=== PATIENT | female | born 1995 | race Caucasian/White ===

== ENCOUNTER 2024-01-16 21:18 | Outpatient (REF) | payer OTHER, SELFPAY ==
[2024-01-21 11:07] LABS: Age Gdln ACOG Testing Note (.); IGP, rfx Aptima HPV ASCU Note (.)
== END 2024-01-16 21:19 | disposition home or self-care (01) ==
LOC: LAB 21:18
PROVIDERS: Visit Provider Obstetrics & Gynecology
DX: Z01.419 Encounter for gynecological examination (general) (routine) without abnormal findings (principal)
CPT/HCPCS: G0145

== ENCOUNTER 2025-01-20 15:37 | Outpatient (REF) | payer OTHER, SELFPAY ==
[2025-01-27 10:08] LABS: Age Gdln ACOG Testing Note (.); IGP, rfx Aptima HPV ASCU Note (.)
== END 2025-01-20 15:38 | disposition home or self-care (01) ==
LOC: LAB 15:37
PROVIDERS: Visit Provider Obstetrics & Gynecology
DX: Z01.419 Encounter for gynecological examination (general) (routine) without abnormal findings (principal)
CPT/HCPCS: 88175

== ENCOUNTER 2025-06-03 08:14 | Outpatient (OUT) | payer OTHER, SELFPAY ==
--- OUTSIDE RECORDS SUMMARY | 2025-06-03 08:20 | XMS_ITS | Encounter Summary ---
Author Organization [facility] Address [address] [place] [address] Care Team Providers Care Etcher [employer] Name Role Phone Huy Degroot MD Primary Care Provider [phone] Encounter Details Date Type Department Care Team (Late st Contact Info) Description 04/21/2025 Abstract [facility] [address] [place], [place] [address] [id number] Juliocesar Verduzco DO [address] [place] [address] Maia [place]umbo, [place] [address] Social History Tobacco Use Types Packs/Day Years Used Date Smoking Tobacco: Never Assessed Estimated Date of Delivery Comme nts Yes 10/17/2025 Based on Ultraso und Sex and Gender Information Value Date Recorded Sex Assigned at Not on file Legal Sex Female 6:50 PM EDT Gender Identity Not on file Sexual Orientation Not on file documented as of this encounter Plan of Treatment Upcoming Encounters Date Type Department Care Team (Late st Contact Info) Description 06/03/2025 9:40 AM EDT Routine [facility] [address] Juliocesar Verduzco DO [address] [place], [place] [id number] 01/26/2026 8:30 AM EDT Office Visit [facility] [place] [address] Juliocesar Verduzco, DO [address] [facility] [place] [address] documented as of this encounter Goals Goal Patient Goal Type Associated Problems Recent Progress Patient-Stated? Author Reminders Care Plan OB Reminders No Open Scheduling, Background documented as of this encounter Visit Diagnoses Not on filedocumented in this encounter Additional Health Concerns Active Problems Noted Date Diagnosed Date OB Reminders 03/29/2025 documented as of this encounter Care Teams Etcher [employer] Relationship Specialty Start Date End Date Huy Degroot MD [address] [facility] [place] [phone] PCP - General 01/09/24 documented as of this encounter
--- OUTSIDE RECORDS SUMMARY | 2025-06-03 08:20 | XMS_ITS | Encounter Summary ---
Author Organization [facility] Address [address] [place] [address] Care Team Providers Care Auto Mechanic Supervisor Name Role Phone Huy Degroot MD Primary Care Provider [phone] Encounter Details Date Type Department Care Team (Latest Contact Info) Description 05/27/2025 Travel Social History Tobacco Use Types Packs/Day Years [...] 06/03/2025 9:40 AM EDT Routine [facility] [address] [facility] [place] [address] Juliocesar Verduzco DO [address] [place], [place] [address] 01/26/2026 8:30 AM EDT Office Visit [facility]IRGILIO BEDOYA [address] [place] [address] Juliocesar Verduzco DO [address], [facility] documented as of this encounter Goals Goal Patient Goal Type Associated Problems Recent Progress Patient-Stated? Author Reminders Care Plan OB Reminders No Open Scheduling, Background documented as of this encounter Visit Diagnoses Not on filedocumented in this encounter Additional Health Concerns Active Problems Noted Date Diagnosed Date OB Reminders 03/29/2025 documented as of this encounter Care Teams Auto Mechanic Supervisor Relationship Specialty Start Date End Date Huy Degroot MD [address] [place] [address] PCP - General 01/09/24 documented as of this encounter
--- OUTSIDE RECORDS SUMMARY | 2025-06-03 08:20 | XMS_ITS | Clinical Summary ---
Author Organization [facility] Address [address] [place] [address] Care Team Providers Care Cst Name Role Phone Huy Degroot MD Primary Care Provider [phone] Allergies No known active allergies Medications Vit-Fe Fumarate-FA ( Vitamins) 28-0.8 MG tabletIndication s:, unspecified gestational age ([facility]),Encoun ter for supervision of normal first in first trimester ([facility]) Take 1 tablet by mouth Daily 30 tablet 11 5 03/21/20 26 Active metroNIDAZOLE (Flagyl) 500 MG tabletIndication s:BV (bacterial vaginosis) Take 1 tablet (500 mg) by mouth in the morning and 1 tablet (500 mg) before bedtime. Do all this for 7 days. Do not drink alcohol while taking this medication. 14 tablet 5 05/14/20 25 Encounters Date Type Department Care Team Description 05/27/2025 Travel 05/07/2025 Telephone [facility] [place] [address] [place] [address] Gely Berumen PA 05/06/2025 8:50 AM EDT Routine [facility] [address] [place] [address] Gely Berumen PA Second trimester ([facility]); 16 weeks gestation of ([facility]); Screening, , for anatomic survey ([facility]); Vaginal discharge 05/06/2025 External Result Encounter [facility] External Department Unsolicited Gely Berumen PA 05/06/2025 Bamboo flowsheet [facility] [address] [place] [address] Gely Berumen PA 05/05/2025 Travel 04/21/2025 Abstract [facility] [address] [place] [address] Juliocesar Verduzco, 04/08/2025 11:40 AM EDT Routine [facility] [address] [place] [address] Juliocesar Verduzco, DO First trimester ([facility]); 12 weeks gestation of ([facility]) 04/08/2025 Bamboo flowsheet [facility] [address] [place] [address] Juliocesar Verduzco, DO 04/01/2025 Travel 03/28/2025 External Result Encounter [facility]OM[facility] External Department Unsolicited Juliocesar Verduzco, DO 03/28/2025 External Result Encounter [facility] External Department Unsolicited Juliocesar Verduzco, DO 03/28/2025 External Result Encounter [facility] External Department Unsolicited Juliocesar Verduzco, DO 03/28/2025 External Result Encounter [facility] External Department Unsolicited Juliocesar Verduzco, DO 03/28/2025 External Result Encounter [facility] External Department Unsolicited Juliocesar Verduzco, DO 03/28/2025 External Result Encounter [facility] External Department Unsolicited Juliocesar Verduzco, DO 03/28/2025 External Result Encounter [facility]OM[facility] External Department Unsolicited Juliocesar Verduzco, DO 03/21/2025 9:00 AM EDT Initial [facility] [place] [address] [place]: 10w0d 03/21/2025 8:30 AM EDT Ancillary Procedure [facility] [place] [phone] Missed menses; Positive urine test ([facility]) 03/16/2025 Travel from Last 3 Months Social History Tobacco Use Types Packs/Day Years Used Date Smoking Tobacco: Never Assessed Estimated Date of Delivery Comme nts Yes 10/17/2025 Based on Ultraso und Sex and Gender Information Value Date Recorded Sex Assigned at Not on file Legal Sex Female 6:50 PM EDT Gender Identity Not on file Sexual Orientation Not on file Last Filed Vital Signs Vital Sign Reading Time Taken Comments Blood Pressure 128/86 05/06/2025 8:38 AM EDT Pulse - - Temperature - - Respiratory Rate - - Oxygen Saturation - - Inhaled Oxygen Concentration - - Weight 76.7 kg (169 lb) 05/06/2025 8:38 AM EDT Height 160 cm (5' 3 ) 01/11/2023 12:00 PM EDT Body Mass Index 29.94 01/11/2023 12:00 PM EDT Plan of Treatment Upcoming Encounters Date Type Department Care Team (Late st Contact Info) Description 06/03/2025 9:40 AM EDT Routine [facility] [address] [phone] Juliocesar Verduzco DO [address] [place] [address] 01/26/2026 8:30 AM EDT Office Visit [facility] [address] [place] [phone] Juliocesar Verduzco DO [address] [place] [address] Goals Goal Patient Goal Type Associated Problems Recent Progress Patient-Stated? Author Reminders Care Plan OB Reminders No Open Scheduling, Background Procedures Procedure Name Priority Date/Time Associated Diagnosis Comments RECURRENT VAGINITIS (HTRX) Routine 05/06/2025 12:03 PM EDT POCT URINALYSIS DIPSTICK Routine 05/06/2025 8:47 AM EDT Second trimester ([facility]) POCT URINALYSIS DIPSTICK Routine 04/08/2025 12:19 PM EDT First trimester ([facility]) HEMOGLOBIN A1C WITH EAG Routine 03/28/2025 1:25 PM EDT HCV ANTIBODY CASCADE Routine 03/28/2025 1:25 PM EDT HEPATITIS B SURFACE ANTIGEN ([facility] Routine 03/28/2025 1:25 PM EDT HIV-1 AND HIV-2 ANTIBODIES Routine 03/28/2025 1:25 PM EDT RPR W/RFX TO QUANT & TP ABS ([facility]) Routine 03/28/2025 1:25 PM EDT RUBELLA AB (IGG), IMMUNE STATUS Routine 03/28/2025 1:25 PM EDT TOXICOLOGY SCREEN, URINE Routine 03/28/2025 1:25 PM EDT CBC WITH AUTO DIFFERENTIAL Routine 03/28/2025 1:25 PM EDT CULTURE, URINE, ROUTINE Routine 03/28/2025 1:25 PM EDT POCT URINALYSIS DIPSTICK Routine 03/21/2025 9:33 AM EDT Missed menses POCT , URINE Routine 03/21/2025 9:31 AM EDT Missed menses US OB TRANSVAGINAL Routine 03/21/2025 8: 44 AM EDT Missed menses Positive urine test ([facility]) from Last 3 Months Results * (ABNORMAL) RECURRENT VAGINITIS (HTRX) (05/06/2025 12:03 PM EDT) [facility] 0 19.961 - 24.689 ppm 05/07/2025 6:18 AM EDT [facility] ATOPOBIUM VAGINAE Not Detected 19.961 - 24.689 ppm 05/07/2025 6:18 AM EDT [facility] BVAB 2,3 (BACTERIAL VAGINOSIS ASSOCIATED BACTERIA 2, 3); MOBILUNCUS SPP 26.334(A) 19.961 - 24.689 ppm 05/07/2025 6:18 AM EDT [facility] BVAB 2,3 (BACTERIAL VAGINOSIS ASSOCIATED BACTERIA 2, 3); MOBILUNCUS SPP Detected(A) 19.961 - 24.689 ppm 05/07/2025 6:18 AM EDT [facility] OSMANY ALBICANS, PARAPSILOSIS, TROPICALIS 0 23.000 - 30.347 ppm 05/07/2025 6:18 AM EDT [facility] OSMANY ALBICANS, PARAPSILOSIS, TROPICALIS Not Detected 23.000 - 30.347 ppm 05/07/2025 6:18 AM EDT [facility] OSMANY GLABRATA 0 23.000 - 31.618 ppm 05/07/2025 6:18 AM EDT [facility] OSMANY GLABRATA Not Detected 23.000 - 31.618 ppm 05/07/2025 6:18 AM EDT [facility] OSMANY KRUSEI 0 23.000 - 30.873 ppm 05/07/2025 6:18 AM EDT [facility] OSMANY KRUSEI Not Detected 23.000 - 30.873 ppm 05/07/2025 6:18 AM EDT [facility] CHLAMYDIA TRACHOMATIS 0 23.000 - 31.586 ppm 05/07/2025 6:18 AM EDT [facility] CHLAMYDIA TRACHOMATIS Not Detected 23.000 - 31.586 ppm 05/07/2025 6:18 AM EDT [facility] GARDNERELLA VAGINALIS 0 19.961 - 24.689 ppm 05/07/2025 6:18 AM EDT [facility] GARDNERELLA VAGINALIS Not Detected 19.961 - 24.689 ppm 05/07/2025 6:18 AM EDT [facility] MEGASPHAERA (TYPES 1, 2) 0 19.961 - 24.689 ppm 05/07/2025 6:18 AM EDT [facility] JANUARYHAERA (TYPES 1, 2) Not Detected 19.961 - 24.689 ppm 05/07/2025 6:18 AM EDT [facility] NEISSERIA GONORRHOEAE 0 23.000 - 32.587 ppm 05/07/2025 6:18 AM EDT [facility] NEISSERIA GONORRHOEAE Not Detected 23.000 - 32.587 ppm 05/07/2025 6:18 AM EDT [facility] TRICHOMONAS VAGINALIS 0 23.000 - 31.995 ppm 05/07/2025 6:18 AM EDT [facility] TRICHOMONAS VAGINALIS Not Detected 23.000 - 31.995 ppm 05/07/2025 6:18 AM EDT [facility] MYCOPLASMA GENITALIUM 0 19.961 - 24.689 ppm 05/07/2025 6:18 AM EDT [facility] MYCOPLASMA GENITALIUM Not Detected 19.961 - 24.689 ppm 05/07/2025 6:18 AM EDT [facility] Tissue 05/06/2025 12:0 3 PM EDT 05/07/2025 1:21 AM EDT us Gely VELASCO LAB BLOOD ORDERABLES Final Resul t [facility] [address] [address] * (ABNORMAL) POCT urinalysis dipstick manually resulted (05/06/2025 8:47 AM EDT) Only the most recent of3 resultswithin the time period is included. Color, UA Yellow Clarity, UA Clear Glucose, UA Negative Negative - 2000(110) ++++ mg/dL Bilirubin, UA Negative Negative - 4(70) +++ mg/dL Ketones, UA Negative Negative - 160(16) ++++ mg/dL Spec Grav, UA 1.010 1 - 1.03 Blood, UA Negative Negative - 50 Tray/mcL pH, UA 6.0 5 - 9 Protein, UA Negative Negative - 1999(20) ++++ mg/dL Urobilinogen, UA 0.2 0.2 - 12 mg/dL Leukocytes, UA Moderate Negative - 500+++ Benigno/mcL Nitrite, UA Negative Negative - Positive Urine 05/06/2025 8:47 AM EDT Gely VELASCO POINT OF CARE TEST ENTER/EDIT OR DERABLES Final Result * HCV ANTIBODY CASCADE (03/28/2025 1:25 PM EDT) Pathologist [facility] HEPATITIS C VIRUS ANTIBODY Non Reactive Non Reactive 03/29/2025 5:07 AM EDT [facility] INTERPRETATION HEPATITIS C Comment . 03/29/2025 5:07 AM EDT [facility] Comment: Not infected with HCV unless early or acute infection is suspected (which may be delayed in an immunocompromised individual), or other evidence exists to indicate HCV infection. Performed at: - [facility] [id number] Labor Supervisor: Noe Kemp PhD, Phone: [phone] Other Topography unknown / Unknown 03/28/2025 1:25 PM EDT 03/28/2025 1:25 PM EDT Narrative [facility] - 03/29/2025 1:25 PM EDT Specimen Comment: A duplicate report has been generated due to demographic Specimen Comment: updates. Juliocesar Verduzco DO LAB BLOOD ORDERABLES Final Resul t [facility] [address] [place] [address], * RPR W/RFX TO QUANT & TP ABS ([facility]) (03/28/2025 1:25 PM EDT) RPR, RFX QUANT RPR Non Reactive Non Reactive 03/29/2025 4:07 AM [facility] RPR INTERPRETATION Comment . 03/29/2025 4:07 AM [facility] Comment: Syphilis: RPR with Reflex to RPR Titer and Treponemal Antibodies, Traditional Screening and Diagnosis Algorithm Treponemal RPR RPR, Qn Ab Final Interpretation -------- --------- Non N/A N/A No laboratory evidence Reactive of syphilis. Retest in 2-4 weeks if recent exposure us suspected. -------- --------- Reactive >/=1:1 Non Nontreponemal antibodies Reactive detected. Syphilis unlikely; biological false positive possible. Retest in 2-4 weeks if recent exposure is suspected. -------- --------- Reactive >/=1:1 Reactive Treponemal and nontreponemal antibodies detected. Consistent with past or current (potential early) syphilis. Performed at: - [facility], [place], [place] [id number] Labor Supervisor: Noe Kemp PhD, Phone: [phone] Other Topography unknown / Unknown 03/28/2025 1:25 PM EDT 03/28/2025 1:25 PM EDT us Juliocesar Verduzco DO LAB BLOOD ORDERABLES Final Resul t [place] [address] [address] [place] [phone], * HEPATITIS B SURFACE ANTIGEN ([facility]) (03/28/2025 1:25 PM EDT) [facility] HBSAG SCREEN Negative Negative 03/29/2025 5:07 AM EDT [facility] Comment: Performed at: - [facility] [id number] Labor Supervisor: Noe Kemp PhD, Phone: [phone] Other Topography unknown / Unknown 03/28/2025 1:25 PM EDT 03/28/2025 1:25 PM EDT Juliocesar Luba DO LAB BLOOD ORDERABLES Final Resul t Performing Organization Address [facility] Co de Phone Number [address] [place] [phone], * Hemoglobin a1c with eag (03/28/2025 1:25 PM EDT) [facility] HEMOGLOBIN A1C 5.0 4.3 - 5.6 % 03/29/2025 9:43 AM EDT [facility] Comment: Increased risk for diabetes: 5.7 - 6.4 diabetes: >6.4 glycemic control for adults with diabetes: <7.0 ESTIMATED AVERAGE GLUCOSE 97 mg/dL 03/29/2025 9:43 AM EDT [facility] Blood (Blood) 03/28/2025 1:2 5 PM EDT 03/28/2025 1:25 PM EDT Juliocesar Luba DO LAB BLOOD ORDERABLES Final Resul t Performing Organization Address [facility] Co de Phone Number [address] [place] [phone], [place] [phone] * CBC auto differential (03/28/2025 1:25 PM EDT) [facility] WBC 7.8 3.8 - 11.6 [CFU]/mL 03/28/2025 2:05 PM EDT [facility] UNCORRECTED WHITE BLOOD COUNT 7.8 3.8 - 11.6 10*3/uL 03/28/2025 2:05 PM EDT [facility] RBC 4.35 3.60 - 5.00 10*6/uL 03/28/2025 2:05 PM EDT [facility] HEMOGLOBIN 13.9 11.8 - 15.4 g/dL 03/28/2025 2:05 PM EDT [facility] HEMATOCRIT 40.2 34.0 - 46.4 % 03/28/2025 2:05 PM EDT [facility] MCV 92.5 80 - 100 fL 03/28/2025 2:05 PM EDT [facility] MCH 31.9 24.7 - 34.3 pg 03/28/2025 2:05 PM EDT [facility] MCHC 34.5 32.0 - 35.0 g/dL 03/28/2025 2:05 PM EDT [facility] RED CELL DISTRIBUTION WIDTH, RDW 12.7 11.9 - 15.3 % 03/28/2025 2:05 PM EDT [facility] PLATELET COUNT 296 150 - 450 10*3/uL 03/28/2025 2:05 PM EDT [facility] MEAN PLATELET VOLUME, MPV 8.4 6.3 - 10.7 fL 03/28/2025 2:05 PM EDT [facility] NEUTROPHILS, % 66.6 . % 03/28/2025 2:05 PM EDT [facility] LYMPHOCYTES, % 24.3 . % 03/28/2025 2:05 PM EDT [facility] MONOCYTE/MACROPHA GE, % 7.0 . % 03/28/2025 2:05 PM EDT [facility] EOSINOPHILS, % 1.6 . % 03/28/2025 2:05 PM EDT [facility] BASOPHILS, % 0.5 . % 03/28/2025 2:05 PM EDT [facility] NRBC 0.1 0 - 0.5 /100{WBC} 03/28/2025 2:05 PM EDT [facility] NEUTROPHILS 5.2 1.8 - 7.7 10*3/uL 03/28/2025 2:05 PM EDT [facility] LYMPHOCYTES 1.9 1.00 - 4.8 10*3/uL 03/28/2025 2:05 PM EDT [facility] MONOCYTES 0.5 0.0 - 0.8 10*3/uL 03/28/2025 2:05 PM EDT [facility] EOSINOPHILS 0.1 0.0 - 0.45 10*3/uL 03/28/2025 2:05 PM EDT [facility] BASOPHILS 0.0 0.0 - 0.2 10*3/uL 03/28/2025 2:05 PM EDT [facility] Blood (Blood) 03/28/2025 1:2 5 PM EDT 03/28/2025 1:25 PM EDT Juliocesar Verduzco DO LAB BLOOD ORDERABLES Final Resul t Performing Organization Address City/State/[facility] Co de Phone Number [facility] [address] [place] [address], [facility] [address] [place] [address] * Toxicology screen, urine (03/28/2025 1:25 PM EDT) AMPHETAMINE SCREEN,URINE Negative Negative 03/28/2025 2:50 PM EDT [facility] BARBITURATE SCREEN,URINE Negative Negative 03/28/2025 2:50 PM EDT [facility] BENZODIAZEPINES SCREEN,URINE Negative Negative 03/28[facility]2025 [facility] COCA[facility],URINE Negative Negative 03/28/2025 2:50 PM EDT [facility] OPIATE SCREEN,URINE Negative Negative 03/28 2:50 PM EDT [facility] PHENCYCLIDINE SCREEN,URINE Negative Negative 03/28/2025 2:50 PM EDT [facility] CANNABINOID SCREEN,URINE Negative Negative 03/28/2025 2:50 PM EDT [facility] Comment: These are unconfirmed results and should not be used for legal purposes. Drug Cut-Off Concentration: AMPH 1000 ng/mL CHARLES 200 ng/mL KAROLYN 200 ng/mL COCM 300 ng/mL OP 300 ng/mL PCP 25 ng/mL THC 20 ng/mL Other 03/28/2025 1:25 PM EDT 03/28/2025 1:25 PM EDT [facility] Luba DO LAB URINE ORDERABLES Final Resul t Performing Organization Address [facility] Co de Phone Number [place] [phone], [place] [phone] * Rubella antibody, IgG (03/28/2025 1:25 PM EDT) RUBELLA IGG ANTIBODY 1.42 Immune >0.99 03/29/2025 3:36 AM EDT [facility] Comment: Non-immune <0.90 Equivocal 0.90 - 0.99 Immune >0.99 Performed at: [facility] [id number] Labor Supervisor: Noe Kemp PhD, Phone: [phone] Other Topography unknown / Unknown 03/28/2025 1:25 PM EDT 03/28/2025 1:25 PM EDT [facility] LAB BLOOD ORDERABLES Final Resul t Performing Organization Address [facility] [place] [address], * HIV-1 and HIV-2 antibodies (03/28/2025 1:25 PM EDT) HIV SCREEN 4TH GENERATION Non Reactive Non Reactive 03/29/2025 5:07 AM EDT [facility] Comment: HIV-1/HIV-2 antibodies and HIV-1 p24 antigen were NOT detected. There is no laboratory evidence of HIV infection. HIV Negative Performed at: [facility] [id number] Labor Supervisor: Noe Kemp PhD, Phone: [phone] Other Topography unknown / Unknown 03/28/2025 1:25 PM EDT 03/28/2025 1:25 PM EDT us Juliocesar Luba DO LAB BLOOD ORDERABLES Final Resul t Performing Organization Address City/[facility]/ZIP Co de Phone Number [facility] [address] [place] [address], * Urine culture (03/28/2025 1:25 PM EDT) Pathologist [facility] NOTE <9,000 colonies/ml mixed bacterial skin contaminants 2 Days 03/30/2025 10:08 AM EDT [facility] Urine Urine specimen obtained by clean catch procedure / Unknown 03/28/2025 1:25 PM EDT 03/28/2025 1:25 PM EDT Comment:Clean-Voided Midstre am us Juliocesar Luba DO LAB MICROBIOLOGY - GENERAL ORDER RAFA Final Result Performing Organization Address [facility] Co de Phone Number [facility] [address] [place] [address], [facility] [address] [place] [address] * (ABNORMAL) POCT , urine manually resulted (03/21/2025 9:31 AM EDT) [facility] Preg Test, Ur Positive Negative Urine 03/21/2025 9:31 AM EDT us Juliocesar Luba DO POINT OF CARE TEST ENTER/EDIT OR DERABLES Final Result * US OB transvaginal (03/21/2025 8:44 AM EDT) Anatomical Region Laterality Modality Body Ultrasound 03/22/2025 8:42 AM EDT Narrative 03/22/2025 8:42 AM EDT EXAM: US OB TRANSVAGINAL HISTORY: Dating. COMPARISON: None available. TECHNIQUE: Two-dimensional transvaginal grayscale ultrasound imaging of the pelvis was performed. Color Doppler evaluation of the ovaries was also performed. FINDINGS: The uterus demonstrates a normal homogeneous echotexture. The cervix measures 4.1 cm in length and the cervical os is closed. The right ovary measures 2.7 x 1.5 x 2.5 cm and demonstrates a normal echotexture. There is normal color Doppler flow. There is a presumed corpus luteal cyst. The left ovary is not visualized. No fluid is present within the cul-de-sac. There is a single, live intrauterine gestation identified with a heart rate of 169 beats per minute and a crown-rump length measurement of 3.1 cm, correlating to a gestational age of 10 weeks 0 days (+/- 6 days). There is no subchorionic hemorrhage visualized. A yolk sac is visualized. IMPRESSION: 1. Single, live intrauterine gestation 9 weeks, 1 days by LMP. Today's ultrasound measurements correlate with a gestational age of 10 weeks 0 days (+/- 6 days). AMIRA by today's ultrasound is 10/17/2025. 2. Normal color Doppler evaluation of the right ovary, the left ovary was not visualized. Interpreted by: Electronically signed by ALEXY SINGH II, MD, PHD at 22-Mar-2025 08:40:55 AM [facility] Procedure Note Alexy Singh MD - 03/22/2025 EXAM: US OB TRANSVAGINAL HISTORY: Dating. COMPARISON: None available. TECHNIQUE: Two-dimensional transvaginal grayscale ultrasound imaging ofthe pelvis was performed. Color Doppler evaluation of the ovaries was alsoperformed. FINDINGS: The uterus demonstrates a normal homogeneous echotexture. The cervixmeasures 4.1 cm in length and the cervical os is closed. The right ovary measures 2.7 x 1.5 x 2.5 cm and demonstrates a normalechotexture. There is normal color Doppler flow. There is a presumedcorpus luteal cyst. The left ovary is not visualized. No fluid is present within the cul-de-sac. There is a single, live intrauterine gestation identified with a fetalheart rate of 169 beats per minute and a crown-rump length measurement of3.1 cm, correlating to a gestational age of 10 weeks 0 days (+/- 6 days).There is no subchorionic hemorrhage visualized. A yolk sac isvisualized. IMPRESSION: 1. Single, live intrauterine gestation 9 weeks, 1 days by LMP. Today'sultrasound measurements correlate with a gestational age of 10 weeks 0days (+/- 6 days). AMIRA by today's ultrasound is 10/17/2025. 2. Normal color Doppler evaluation of the right ovary, the left ovary wasnot visualized. Interpreted by: Electronically signed by ALEXY SINGH II, MD, PHD 08:40:55 AM [facility] us Juliocesar Verduzco DO IMG OB US PROCEDURES Final Resul t from Last 3 Months Additional Health Concerns Active Problems Noted Date Diagnosed Date OB Reminders 03/29/2025 Insurance [employer] Care Teams Cst Relationship Specialty Start Date End Date Huy Degroot MD [address] [facility] [place] [phone] PCP - General 01/09/24
--- OUTSIDE RECORDS SUMMARY | 2025-06-03 08:20 | XMS_ITS | Encounter Summary ---
Author Organization [facility] Address [address] [place] [address] Care Team Providers Care Exchange Underwriting Consultant Name Role Phone Huy Degroot MD Primary Care Provider [phone] Encounter Details Date Type Department Care Team (Late st Contact Info) Description 01/30/2025 Orders Only [facility] [address] [place] [address] [place] [address] [place] [address] Social History Tobacco Use Types Packs/Day Years Used Date Smoking Tobacco: Never Assessed Comments No Sex and Gender Information Value Date Recorded Sex Assigned at Not on file Legal Sex Female 6:50 PM EDT Gender Identity Not on file Sexual Orientation Not on file documented as of this encounter Plan of Treatment Upcoming Encounters Date Type Department Care Team (Late st Contact Info) Description 06/03/2025 9:40 AM EDT Routine [facility] [address] [place], [place] [address] [phone] Juliocesar Verduzco, DO [address] [place], [place] [phone] 01/26/2026 8:30 AM EDT Office Visit [facility] [place] [address] [place] [phone] Juliocesar Verduzco, DO [address] [place], [place] [phone] documented as of this encounter Procedures Procedure Name Priority Date/Time Associated Diagnosis Comments PAP SMEAR Routine 01/20/2025 12:00 AM EDT documented in this encounter Results * Pap Smear (01/20/2025 12:00 AM EDT) Swab Cervical swab / Unknown us Juliocesar Luba DO LAB CYTOLOGY ORDERABLES Final Re sult EXTERNAL LAB documented in this encounter Visit Diagnoses Not on filedocumented in this encounter Care Teams Exchange Underwriting Consultant Relationship Specialty Start Date End Date Huy Degroot MD [address] [facility] [place] [address] PCP - General 01/09/24 documented as of this encounter
--- OUTSIDE RECORDS SUMMARY | 2025-06-03 08:20 | XMS_ITS | Clinical Summary ---
Author Organization [facility] Address [address] [place] [id number] Care Team Providers Care Baby Formula Mixer Name Role Phone AlishaEvangelist garcia Primary Care Provider [phone] Medications ciprofloxacin HCl (CIPRO ORAL) Take by mouth. Active Social History Tobacco Use Types Packs/Day Years Used Date Smoking Tobacco: Never Assessed Area Deprivation Index Answer Date Rodrigo rded National Score (1-100), lower number is lower ri sk Not on file 02/24/2021 State Score (1-10), lower number is lower risk N ot on file 02/24/2021 Data from: https://www.neighborhoodatlas.[facility].edu/. Last address used for calculation Not on file 02/24/2021 Comments No Sex and Gender Information Value Date Recorded Sex Assigned at Not on file Legal Sex Female 12:53 PM EST Gender Identity Not on file Sexual Orientation Not on file Last Filed Vital Signs Vital Sign Reading Time Taken Comments Blood Pressure 122/80 02/24/2021 10:37 AM EDT Pulse - - Temperature - - Respiratory Rate - - Oxygen Saturation - - Inhaled Oxygen Concentration - - Weight 68.9 kg (152 lb) 02/24/2021 10:37 AM EDT Height 162.6 cm (5' 4 ) 02/24/2021 10:37 AM EDT Body Mass Index 26.09 02/24/2021 10:37 AM EDT Plan of Treatment Health Maintenance Due Date Last Done Comments Anxiety Screening 2013 Depression Screening 2013 HIV Screening 2013 Hepatitis C Screening 2013 DTaP,Tdap,Td Vaccine (1 - Tdap) 2014 Hepatitis B Vaccine (1 of 3 - 19+ 3-dose series) 11/23 Cervical Cancer Screening 2016 HPV Vaccine (1 - 3-dose SCDM series) 2022 Influenza Vaccine (#1) 2025 Insurance [employer] Care Teams Baby Formula Mixer Relationship Specialty Start Date End Date Evangelist Brito [id number] [place] [id number] PCP - General Internal Medicine 10/20/20
--- NOTE | 2025-06-03 08:21 | US_ITS ---
The [address] [address] Patient Name: YENY DOYLE MRN: [id number] date: 1995 Sex: F Assigned Patient Location: Current Patient Location: Accession/Order Number: [id number] Exam Date: 06/03/2025 08:28 Report Date: 06/03/2025 09:49 At the request of: GISSEL MANJARREZ Procedure: US OB cervical length CLINICAL DATA: Screening of OB anatomy. ULTRASOUND OB ANATOMY COMPARISON: None There is a single live intrauterine gestation in transverse presentation, head to the maternal left. The amniotic fluid volume is subjectively normal. The placenta is anterior and fundal. There is cardiac and somatic activity with heart rate of 134 beats per minutes. The neural axis and all 4 extremities were surveyed by the sewing machine operator zipper and no abnormalities were detected. The stomach, bladder, kidneys, three-vessel cord with insertion, four-chamber heart with right and left outflow tracts, diaphragm, facial features and female genitalia are seen. The following measurements were obtained: Biparietal diameter 4.8 cm 20 weeks 4 days 52% Head circumference 17.7 cm 20 weeks 1 day 24% Abdominal circumference 16.4 cm 21 weeks 3 days 71% Femur length 3.4 cm 20 weeks 3 days 39% The composite ultrasound age based on these measurements is 20 weeks 5 days +/- 1 week 3 days. The estimated date of delivery is October 16, 2025. US/US OB cervical length IMPRESSION: SINGLE LIVE INTRAUTERINE GESTATION WITH ULTRASOUND AGE OF 20 WEEKS 5 DAYS. UNREMARKABLE ANATOMY SURVEY. ULTRASOUND OB CERVICAL LENGTH COMPARISON: None The cervix was evaluated with the transvaginal probe. There is no evidence of previa. The placenta is almost 7 cm from the internal cervical os. The cervix is closed. The estimated length is 4.5 cm. IMPRESSION: UNREMARKABLE, CLOSED CERVIX. Impression dictated by: Annia Putnam M.D. 06/03/2025 9:49 AM Dictation Location: [employer] Electronically authenticated by: [id number] Y Date: 06/03/2025 09:49
--- NOTE | 2025-06-03 08:21 | US_ITS ---
The [address] [address] Patient Name: YENY DOYLE MRN: [id number] date: 1995 Sex: F Assigned Patient Location: Current Patient Location: Accession/Order Number: [id number] Exam Date: 06/03/2025 08:28 Report Date: 06/03/2025 09:49 At the request of: GISSEL MANJARREZ Procedure: US OB cervical length CLINICAL DATA: Screening of OB anatomy. ULTRASOUND OB ANATOMY COMPARISON: None There is a single live intrauterine gestation in transverse presentation, head to the maternal left. The amniotic fluid volume is subjectively normal. The placenta is anterior and fundal. There is cardiac and somatic activity with heart rate of 134 beats per minutes. The neural axis and all 4 extremities were surveyed by the farm machine tender and no abnormalities were detected. The stomach, bladder, kidneys, three-vessel cord with insertion, four-chamber heart with right and left outflow tracts, diaphragm, facial features and female genitalia are seen. The following measurements were obtained: Biparietal diameter 4.8 cm 20 weeks 4 days 52% Head circumference 17.7 cm 20 weeks 1 day 24% Abdominal circumference 16.4 cm 21 weeks 3 days 71% Femur length 3.4 cm 20 weeks 3 days 39% The composite ultrasound age based on these measurements is 20 weeks 5 days +/- 1 week 3 days. The estimated date of delivery is October 16, 2025. US/US OB anatomy IMPRESSION: SINGLE LIVE INTRAUTERINE GESTATION WITH ULTRASOUND AGE OF 20 WEEKS 5 DAYS. UNREMARKABLE ANATOMY SURVEY. ULTRASOUND OB CERVICAL LENGTH COMPARISON: None The cervix was evaluated with the transvaginal probe. There is no evidence of previa. The placenta is almost 7 cm from the internal cervical os. The cervix is closed. The estimated length is 4.5 cm. IMPRESSION: UNREMARKABLE, CLOSED CERVIX. Impression dictated by: Annia Putnam M.D. 06/03/2025 9:49 AM Dictation Location[facility] Electronically authenticated by: [id number] Y Date: 06/03/2025 09:49
--- OUTSIDE RECORDS SUMMARY | 2025-06-03 08:27 | XMS_ITS | CCD ---
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 Name Role Phone LUBA ., DR WHEAT Attending Unavailable LUBA ., DR WHEAT Consulting Unavailable LUBA ., DR WHEAT Admitting Unavailable Huy Degroot MD Primary Care Provider Huy Degroot MD Primary Care Provider Huy Degroot Primary Care Unavailable Jarret Verduzco Attending Jarret Rocha Admitting Unavailable JARRET VERDUZCO Attending Unavailable JARRET VERDUZCO Attending Unavailable GELY MANJARREZ Attending Unavailable Medications Current Medications Medication Drug Class(es) Dates Sig (Normalized) Sig (Original) Ethinyl Estradiol / norgestimate (3 sources) Progestin, Estrogen Start: 02-29-2024 End: 01-20-2025 take 1 tablet by mouth once daily norgestimate-ethiny l estradiol (Ortho Tri-Cyclen,Trinessa ) 0.18/0.215/0.25 MG-35 MCG tablet Indications: Personal history of other diseases of the female genital tract TAKE 1 TABLET BY MOUTH EVERY DAY FOR 90 DAYS 84 tablet 3 02/29/2024 01/20/2025 Discontinued Start: 02-29-2024 take 1 tablet by jodee th once daily norgestimate-ethinyl estradiol (Ortho Tri-Cyclen,Trinessa) 0.18/0.215/0.25 MG-35 MCG tablet Indications: Personal history of other diseases of the female genital tract TAKE 1 TABLET BY MOUTH EVERY DAY FOR 90 DAYS 84 tablet 3 02/29/2024 Active Vit-Fe Fumarate-FA ( Vitamins) 28-0.8 MG tablet (14 sources) Start: 03-21-2025 End: 03-21-2026 take 1 tablet by mouth once daily Vit-Fe Fumarate-FA ( Vitamins) 28-0.8 MG tablet Indications: , unspecified gestational age ([facility]) , Encounter for supervision of normal first in first trimester ([facility]) Take 1 tablet by mouth Daily 30 tablet 11 03/21/2025 03/21/2026 Active Problems Problem Classification Problem Date Documented Date Episodic/Chronic Immunizations and screening for infectious disease (1 source) Encounter for screening for human papillomavirus (HPV); Translations: [ENC SCREENING HUMAN PAPILLOMAVIRUS] Onset: 01-16-2023 Episodic Menstrual disorders (1 source) Missed period; Translations: [Irregular menstruation, unspecified] 03-21-2025 Chronic Other female genital disorders (2 sources) Vaginal discharge; Translations: [Other specified noninflammatory disorders of vagina] 05-06-2025 Episodic Other and delivery including normal (7 sources) ; Translations: [Encounter for supervision of normal , unspecified, unspecified trimester] Onset: 03-28-2025 03-21-2025 Episodic Other screening for suspected conditions (not mental disorders or infectious disease) (6 sources) Encounter for screening for malignant neoplasm of cervix; Translations: [Patient encounter status] Onset: 01-11-2023 Episodic Residual codes; unclassified (2 sources) Gestation period, 12 weeks; Translations: [12 weeks gestation of ] 04-08-2025 Episodic Residual codes; unclassified (2 sources) Gestation period, 16 weeks; Translations: [16 weeks gestation of ] 05-06-2025 Episodic Unclassified (7 sources) OB Reminders Onset: 03-29-2025 03-29-2025 Results Test Name Value Interpretation Reference Range Facility RECURRENT VAGINITIS (HTRX)on 05-07-2025 ATOPOBIUM VAGINAE 0 [facility] ATOPOBIUM VAGINAE Not detected [facility] BVAB 2,3 (BACTERIAL VAGINOSIS ASSOCIATED BACTERIA 2, 3); MOBILUNCUS SPP 26.334 Abnormal [facility] BVAB 2,3 (BACTERIAL VAGINOSIS ASSOCIATED BACTERIA 2, 3); MOBILUNCUS SPP Detected Abnormal [facility] OSMANY ALBICANS, PARAPSILOSIS, TROPICALIS 0 [facility] OSMANY ALBICANS, PARAPSILOSIS, TROPICALIS Not detected [facility] OSMANY GLABRATA 0 [facility] OSMANY GLABRATA Not detected [facility] OSMANY KRUSEI 0 [facility] OSMANY KRUSEI Not detected [facility] CHLAMYDIA TRACHOMATIS 0 [facility] CHLAMYDIA TRACHOMATIS Not detected [facility] GARDNERELLA VAGINALIS 0 [facility] GARDNERELLA VAGINALIS Not detected [facility] Interpretation and review of laboratory results Abnormal [facility] MEGASPHAERA (TYPES 1, 2) 0 [facility] MEGASPHAERA (TYPES 1, 2) Not detected [facility] MYCOPLASMA GENITALIUM 0 [facility] MYCOPLASMA GENITALIUM Not detected [facility] NEISSERIA GONORRHOEAE 0 [facility] NEISSERIA GONORRHOEAE Not detected [facility] TRICHOMONAS VAGINALIS 0 [facility] TRICHOMONAS VAGINALIS Not detected [facility] Urinalysis macro (dipstick) panel (U)on 05-06-2025 Bilirubin, UA Negative Negative - 4(70) +++ mg/dL [facility] Blood, UA Negative Negative - 50 Tray/mcL [facility] Clarity, UA Clear [facility] Color, UA Yellow [facility] Glucose, UA Negative Negative - 1999(110) ++++ mg/dL [facility] Interpretation and review of laboratory results Abnormal [facility] Ketones, UA Negative Negative - 160(16) ++++ mg/dL [facility] Leukocytes, UA Moderate Negative - 500+++ Benigno/mcL [facility] Nitrite, UA Negative Negative - Positive [facility] pH, UA 6 5 - 9 [facility] Protein, UA Negative Negative - 1999(20) ++++ mg/dL [facility] Spec Grav, UA 1.01 1 - 1.03 [facility] Urobilinogen, UA 0.2 0.2 - 12 mg/dL [facility] Urinalysis macro (dipstick) panel (U)on 04-08-2025 Bilirubin, UA Negative Negative - 4(70) +++ mg/dL [facility] Blood, UA Negative Negative - 50 Tray/mcL [facility] Clarity, UA Clear [facility] Color, UA Yellow [facility] Glucose, UA Negative Negative - 1999(110) ++++ mg/dL [facility] Interpretation and review of laboratory results Abnormal [facility] Ketones, UA Negative Negative - 160(16) ++++ mg/dL [facility] Leukocytes, UA Positive Negative - 500+++ Benigno/mcL [facility] Comment on above: small Nitrite, UA Negative Negative - Positive [facility] pH, UA 7 5 - 9 [facility] Protein, UA Negative Negative - 1999(20) ++++ mg/dL [facility] Spec Grav, UA 1.015 1 - 1.03 [facility] Urobilinogen, UA 0.2 0.2 - 12 mg/dL [facility] HEPATITIS B SURFACE ANTIGEN ([facility])on 03-29-2025 HBSAG SCREEN Negative Negative [facility] Comment on above: Performed at: [address] [id number] Behavioral Psychologist: Noe Kemp PhD, Phone: [phone] [facility] Hemoglobin a1c with eagon Glucose [Mass/Vol] 97 mg/dL [facility] HbA1c (Bld) [Mass fraction] 5 % 4.3 - 5.6 % [facility] Comment on above: Increased risk for d iabetes: 5.7 - 6.4 diabetes: >6.4 glycemic control for adults with diabetes: <7.0 [facility] A1C with Estimated Average G luon 03-28-2025 Glucose [Mass/Vol] 97 mg/dL Normal [facility] Comment on above: Result Comment: PERF ORMED BY: [place] [address] PATHOLOGIST EXECUTIVE ADVISOR ARNALDO RENO M.D. Performed By: #### C BC, CUU, URDS, A1C WTH eA #### [address] #### RUBELLA IGG, HIV SCREEN, HBSAG, RPR W RFX, HCVCASCADE #### [facility] , HbA1c (Bld) [Mass fraction] 5.0 % Normal 4.3-5.6 [facility] Comment on above: Result Comment: Incr eased risk for diabetes: 5.7 - 6.4 diabetes: >6.4 glycemic control for adults with diabetes: <7.0 Performed By: #### C BC, CUU, URDS, A1C WTH eA #### [place] [address] [place] #### RUBELLA IGG, HIV SCREEN, HBSAG, RPR W RFX, HCVCASCADE #### [facility] , CBC W Auto Differential pane l (Bld)on 03-28-2025 Basophils (Bld) [#/Vol] 0 10*3/uL 0.0 - 0.2 10*3/uL [facility] Basophils/100 WBC Manual cnt (Syn fld) 0.5 % . [facility] Eosinophils (Bld) [#/Vol] 0.1 10*3/uL 0.0 - 0.45 10*3/uL [facility] Eosinophils/100 WBC Manual cnt (Syn fld) 1.6 % . [facility] Erythrocyte distribution width (RBC) [Ratio] 12.7 % 11.9 - 15.3 % [facility] Hematocrit (Bld) [Volume fraction] 40.2 % 34.0 - 46.4 % [facility] Hemoglobin (Bld) [Mass/Vol] 13.9 g/dL 11.8 - 15.4 g/dL [facility] Lymphocytes (Bld) [#/Vol] 1.9 10*3/uL 1.00 - 4.8 10*3/uL [facility] Lymphocytes/100 WBC Manual cnt (Syn fld) 24.3 % . [facility] MCH (RBC) [Entitic mass] 31.9 pg 24.7 - 34.3 pg [facility] MCHC (RBC) [Mass/Vol] 34.5 g/dL 32.0 - 35.0 g/dL [facility] MCV (RBC) [Entitic vol] 92.5 fL 80 - 100 fL [facility] Monocytes (Bld) [#/Vol] 0.5 10*3/uL 0.0 - 0.8 10*3/uL [facility] Monocytes+Macrophage s/100 WBC Manual cnt (Syn fld) 7 % . [facility] Neutrophils (Bld) [#/Vol] 5.2 10*3/uL 1.8 - 7.7 10*3/uL [facility] Neutrophils/100 WBC Manual cnt (Syn fld) 66.6 % . [facility] NRBC 0.1 /100{WBC} 0 - 0.5 /100{WBC} [facility] Platelet mean volume (Bld) [Entitic vol] 8.4 fL 6.3 - 10.7 fL [facility] Platelets (Bld) [#/Vol] 296 10*3/uL 150 - 450 10*3/uL [facility] RBC LM.HPF (Urine sed) [#/Area] 4.35 10*6/uL 3.60 - 5.00 10*6/uL [facility] WBC (Bld) [#/Vol] 7.8 10*3/uL 3.8 - 11.6 10*3/uL [facility] WBC LM.HPF (Urine sed) [#/Area] 7.8 [CFU]/mL 3.8 - 11.6 [CFU]/mL [facility] Complete Blood Count Auto Di ffon 03-28-2025 Basophils (Bld) [#/Vol] 0.0 10*3/uL Normal 0.0-0.2 [facility] Comment on above: Result Comment: PERF ORMED BY: [place] [address] PATHOLOGIST EXECUTIVE ADVISOR ARNALDO RENO M.D. Performed By: #### C BC, CUU, URDS, A1C [facility] eA #### [address] #### RUBELLA IGG, HIV SCREEN, HBSAG, RPR W RFX, HCVCASCADE #### [facility] , Basophils/100 WBC (Bld) 0.5 % Normal . [facility] Comment on above: Performed By: #### C BC, CUU, URDS, A1C [facility] eA #### [place] [address] [place] #### RUBELLA IGG, HIV SCREEN, HBSAG, RPR W RFX, HCVCASCADE #### [facility] , Eosinophils (Bld) [#/Vol] 0.1 10*3/uL Normal 0.0-0.45 [facility] Comment on above: Performed By: #### C BC, CUU, URDS, A1C WT eA #### [place] [address] [place] #### RUBELLA IGG, HIV SCREEN, HBSAG, RPR W RFX, HCVCASCADE #### [facility] , Eosinophils/100 WBC (Bld) 1.6 % Normal . [facility] Comment on above: Performed By: #### C BC, CUU, URDS, A1C WTH eA #### [address] #### RUBELLA IGG, HIV SCREEN, HBSAG, RPR W RFX, HCVCASCADE #### [facility] , Erythrocyte distribution width (RBC) [Ratio] 12.7 % Normal 11.9-15.3 [facility] Comment on above: Performed By: #### C BC, CUU, URDS, A1C WTH eA #### [address] #### RUBELLA IGG, HIV SCREEN, HBSAG, RPR W RFX, HCVCASCADE #### [facility] , Hematocrit (Bld) [Volume fraction] 40.2 % Normal 34.0-46.4 [facility] Comment on above: Performed By: #### C BC, CUU, URDS, A1C WTH eA #### [address] #### RUBELLA IGG, HIV SCREEN, HBSAG, RPR W RFX, HCVCASCADE #### [facility] , Hemoglobin (Bld) [Mass/Vol] 13.9 g/dL Normal 11.8-15.4 [facility] Comment on above: Performed By: #### C BC, CUU, URDS, A1C WTH eA #### [place] [address] [place] #### RUBELLA IGG, HIV SCREEN, HBSAG, RPR W RFX, HCVCASCADE #### [facility] , Lymphocytes (Bld) [#/Vol] 1.9 10*3/uL Normal 1.00-4.8 [facility] Comment on above: Performed By: #### C BC, CUU, URDS, A1C WTH eA #### [facility] [address] [place] [address] [place] #### RUBELLA IGG, HIV SCREEN, HBSAG, RPR W RFX, HCVCASCADE #### [facility] , Lymphocytes/100 WBC (Bld) 24.3 % Normal . [facility] Comment on above: Performed By: #### C BC, CUU, URDS, A1C WTH eA #### [address] #### RUBELLA IGG, HIV SCREEN, HBSAG, RPR W RFX, HCVCASCADE #### [facility] , MCH (RBC) [Entitic mass] 31.9 pg Normal 24.7-34.3 [facility] Comment on above: Performed By: #### C BC, CUU, URDS, A1C WTH eA #### [address] #### RUBELLA IGG, HIV SCREEN, HBSAG, RPR W RFX, HCVCASCADE #### [facility] , MCV (RBC) [Entitic vol] 92.5 fL Normal 80-100 [facility] Comment on above: Performed By: #### C BC, CUU, URDS, A1C WTH eA #### [address] #### RUBELLA IGG, HIV SCREEN, HBSAG, RPR W RFX, HCVCASCADE #### [facility] , Mean Corpuscular HGB Conc 34.5 g/dL Normal 32.0-35.0 [facility] Comment on above: Performed By: #### C BC, CUU, URDS, A1C WTH eA #### [address] #### RUBELLA IGG, HIV SCREEN, HBSAG, RPR W RFX, HCVCASCADE #### [facility] , Monocytes (Bld) [#/Vol] 0.5 10*3/uL Normal 0.0-0.8 [facility] Comment on above: Performed By: #### C BC, CUU, URDS, A1C WTH eA #### [address] #### RUBELLA IGG, HIV SCREEN, HBSAG, RPR W RFX, HCVCASCADE #### [facility] , Monocytes/100 WBC (Bld) 7.0 % Normal . [facility] Comment on above: Performed By: #### C BC, CUU, URDS, A1C WTH eA #### [address] #### RUBELLA IGG, HIV SCREEN, HBSAG, RPR W RFX, HCVCASCADE #### [facility] , Neutrophils (Bld) [#/Vol] 5.2 10*3/uL Normal 1.8-7.7 [facility] Comment on above: Performed By: #### C BC, CUU, URDS, A1C [facility] eA #### [address] #### RUBELLA IGG, HIV SCREEN, HBSAG, RPR W RFX, HCVCASCADE #### [facility] , Neutrophils/100 WBC (Bld) 66.6 % Normal . [facility] Comment on above: Performed By: #### C BC, CUU, URDS, A1C WT eA #### [place] [address] [place] #### RUBELLA IGG, HIV SCREEN, HBSAG, RPR W RFX, HCVCASCADE #### [facility] , NRBC% 0.1 /100{WBC} Normal 0-0.5 [facility] Comment on above: Performed By: #### C BC, CUU, URDS, A1C WTH eA #### [address] #### RUBELLA IGG, HIV SCREEN, HBSAG, RPR W RFX, HCVCASCADE #### [facility] , Platelet mean volume (Bld) [Entitic vol] 8.4 fL Normal 6.3-10.7 [facility] Comment on above: Performed By: #### C BC, CUU, URDS, A1C WTH eA #### [address] #### RUBELLA IGG, HIV SCREEN, HBSAG, RPR W RFX, HCVCASCADE #### [facility] , Platelets (Bld) [#/Vol] 296 10*3/uL Normal 150-450 [facility] Comment on above: Performed By: #### C BC, CUU, URDS, A1C WTH eA #### [address] #### RUBELLA IGG, HIV SCREEN, HBSAG, RPR W RFX, HCVCASCADE #### [facility] , RBC (Bld) [#/Vol] 4.35 10*6/uL Normal 3.60-5.00 [facility] Comment on above: Performed By: #### C BC, CUU, URDS, A1C WT eA #### [address] #### RUBELLA IGG, HIV SCREEN, HBSAG, RPR W RFX, HCVCASCADE #### [facility] , WBC (Bld) [#/Vol] 7.8 10*3/uL Normal 3.8-11.6 [facility] Comment on above: Performed By: #### C BC, CUU, URDS, A1C WTH eA #### [place] [address] [place] #### RUBELLA IGG, HIV SCREEN, HBSAG, RPR W RFX, HCVCASCADE #### [facility] , White Blood Count 7.8 [CFU]/mL Normal 3.8-11.6 [facility] Comment on above: Performed By: #### C BC, CUU, URDS, A1C WTH eA #### [address] #### RUBELLA IGG, HIV SCREEN, HBSAG, RPR W RFX, HCVCASCADE #### [facility] , Drug Screen,Urineon 03-28-20 25 Amphetamine Screen,Urine Negative Normal Negative [facility] Comment on above: Performed By: #### C BC, CUU, URDS, A1C WTH eA #### [address] #### RUBELLA IGG, HIV SCREEN, HBSAG, RPR W RFX, HCVCASCADE #### [facility] , Barbiturate Screen,Urine Negative Normal Negative [facility] Comment on above: Performed By: #### C BC, CUU, URDS, A1C WT eA #### [address] #### RUBELLA IGG, HIV SCREEN, HBSAG, RPR W RFX, HCVCASCADE #### [facility] , Benzodiazepines Screen,Urine Negative Normal Negative [facility] Comment on above: Performed By: #### C BC, CUU, URDS, A1C WT eA #### [address] #### RUBELLA IGG, HIV SCREEN, HBSAG, RPR W RFX, HCVCASCADE #### [facility] , Cannabinoid Screen,Urine Negative Normal Negative [facility] Comment on above: Result Comment: Thes e are unconfirmed results and should not be used for legal purposes. Drug Cut-Off Concentration: AMPH 1000 ng/mL CHARLES 200 ng/mL KAROLYN 200 ng/mL COCM 300 ng/mL OP 300 ng/mL PCP 25 ng/mL THC 20 ng/mL PERFORMED BY: [place] [address] PATHOLOGIST EXECUTIVE ADVISOR ARNALDO RENO M.D. Performed By: #### C BC, CUU, URDS, A1C WTH eA #### [place] [address] [place] #### RUBELLA IGG, HIV SCREEN, HBSAG, RPR W RFX, HCVCASCADE #### [facility] , Cocaine Screen,Urine Negative Normal Negative [facility] Comment on above: Performed By: #### C BC, CUU, URDS, A1C [facility] eA #### [place] [address] [place] #### RUBELLA IGG, HIV SCREEN, HBSAG, RPR W RFX, HCVCASCADE #### [facility] , Opiate Screen,Urine Negative Normal Negative [facility] Comment on above: Performed By: #### C BC, CUU, URDS, A1C [facility] eA #### [place] [address] [place] #### RUBELLA IGG, HIV SCREEN, HBSAG, RPR W RFX, HCVCASCADE #### [facility] , Phencyclidine Screen,Urine Negative Normal Negative [facility] Comment on above: Performed By: #### C BC, CUU, URDS, [address] eA #### [place] [address] [place] #### RUBELLA IGG, HIV SCREEN, HBSAG, RPR W RFX, HCVCASCADE #### [facility] , Drugs of abuse panel Screen (U)on 03-28-2025 AMPHETAMINE SCREEN,URINE Negative Negative [facility] BARBITURATE SCREEN,URINE Negative Negative [facility] BENZODIAZEPINES SCREEN,URINE Negative Negative [facility] CANNABINOID SCREEN,URINE Negative Negative [facility] Comment on above: These are unconfirme d results and should not be used for legal purposes. Drug Cut-Off Concentration: AMPH 1000 ng/mL CHARLES 200 ng/mL KAROLYN 200 ng/mL COCM 300 ng/mL OP 300 ng/mL PCP 25 ng/mL THC 20 ng/mL COCAINE SCREEN,URINE Negative Negative [facility] OPIATE SCREEN,URINE Negative Negative [facility] PHENCYCLIDINE SCREEN,URINE Negative Negative [facility] HCV Antibody Cascadeon 03-28 Hepatitis C Virus Antibody Non-Reactive Normal Non Reactive [facility] Comment on above: Order Comment: Speci men Comment: A duplicate report has been generated due to demographic Specimen Comment: updates. Performed By: #### C BC, CUU, URDS, A1C WTH eA #### [address] #### RUBELLA IGG, HIV SCREEN, HBSAG, RPR W RFX, HCVCASCADE #### [facility] , Interpretation Hepatitis C Comment Normal . [facility] Comment on above: Order Comment: Speci men Comment: A duplicate report has been generated due to demographic Specimen Comment: updates. Result Comment: Not infected with HCV unless early or acute infection is suspected (which may be delayed in an immunocompromised individual), or other evidence exists to indicate HCV infection. Performed at: [facility] [employer] [id number] Behavioral Psychologist: Noe Kemp PhD, Phone: [phone] PERFORMED BY: [place] [address] PATHOLOGIST EXECUTIVE ADVISOR ARNALDO RENO M.D. Performed By: #### C BC, CUU, URDS, A1C WT eA #### [address] #### RUBELLA IGG, HIV SCREEN, HBSAG, RPR W RFX, HCVCASCADE #### [facility] , HIV 1/O/2 Antigen/Antibodyon 03-28-2025 HIV Screen 4th Generation Non-Reactive Normal Non Reactive [facility] Comment on above: Result Comment: HIV- 1/HIV-2 antibodies and HIV-1 p24 antigen were NOT detected. There is no laboratory evidence of HIV infection. HIV Negative Performed at: [facility] [place] [address] Behavioral Psychologist: Noe Kemp PhD, Phone: [phone] Performed By: #### C BC, CUU, URDS, A1C WTH eA #### [place] [address] [place] #### RUBELLA IGG, HIV SCREEN, HBSAG, RPR W RFX, HCVCASCADE #### [facility] , Hepatitis B Surface Antigeno n 03-28-2025 HBsAg Screen Negative Normal Negative [facility] Comment on above: Result Comment: Perf ormed at: - [facility] [address], [place], [place] [id number] Behavioral Psychologist: Noe Kemp PhD, Phone: [phone] PERFORMED BY: [place] [address] PATHOLOGIST EXECUTIVE ADVISOR ARNALDO RENO M.D. Performed By: #### C BC, ELZBIETAU, URDHRUV, A1C WT eA #### [address] #### RUBELLA IGG, HIV SCREEN, HBSAG, RPR W RFX, HCVCASCADE #### [facility] , RPR w/rfx to Quant TP Abson 03-28-2025 RPR Interpretation Comment Normal . [facility] Comment on above: Result Comment: Syph ilis: RPR with Reflex to RPR Titer and [...] or current (potential early) syphilis. Performed at: [facility] [employer] [id number] Behavioral Psychologist: Noe Kemp PhD, Phone: [phone] PERFORMED BY: [place] [address] PATHOLOGIST EXECUTIVE ADVISOR ARNALDO RENO M.D. Performed By: #### C BC, CUU, URDS, A1C WTH eA #### [address] #### RUBELLA IGG, HIV SCREEN, HBSAG, RPR W RFX, HCVCASCADE #### [facility] , RPR, Rfx Quant RPR Non-Reactive Normal Non Reactive [facility] Comment on above: Performed By: #### C BC, CUU, URDS, A1C WTH eA #### [address] #### RUBELLA IGG, HIV SCREEN, HBSAG, RPR W RFX, HCVCASCADE #### [facility] , Rubella IgG Antibodyon 03-28 Rubella IgG Antibody 1.42 Normal Immune >0.99 [facility] Comment on above: Result Comment: Non- immune <0.90 Equivocal 0.90 - 0.99 Immune >0.99 Performed at: [facility] [employer] [id number] Behavioral Psychologist: Noe Kemp PhD, Phone: [phone] Performed By: #### C BC, CUU, URDS, A1C WTH eA #### [place] [address] [place] #### RUBELLA IGG, HIV SCREEN, HBSAG, RPR W RFX, HCVCASCADE #### [facility] , Type and Screenon 03-28-2025 ABO and Rh group Nom (Bld) Blood group A Rh(D) positive Normal [facility] Urine Cultureon 03-28-2025 Bacteria identified Cx Nom (U) <9,000 colonies/ml mixed bacterial skin contaminants 2 Days PERFORMED BY: [facility] [address] [place] [address] PATHOLOGIST EXECUTIVE ADVISOR ARNALDO RENO M.D. Normal [facility] Comment on above: Performed By: #### C BC, CUU, URDS, A1C WTH eA #### [address] #### RUBELLA IGG, HIV SCREEN, HBSAG, RPR W RFX, HCVCASCADE #### [facility] , HCG ( test) Ql (U)o n 03-21-2025 Interpretation and review of laboratory results Abnormal [facility] Preg Test, Ur Positive Negative [facility] US OB TRANSVAGINALon 025 US OB TRANSVAGINAL EXAM: US OB TRANSVAGINAL HISTORY: Dating. COMPARISON: [...] visualized. Interpreted by: Electronically signed by ALEXY SCHUSTER II, MD, PHD at 22-Mar-2025 08:40:55 AM [facility] Normal Not Available Comment on above: Order Comment: US OB TRANSVAGINAL No LMP recorded. Urinalysis macro (dipstick) panel (U)on 03-21-2025 Bilirubin, UA Negative Negative - 4(70) +++ mg/dL [facility] Blood, UA Negative Negative - 50 Tray/mcL [facility] Clarity, UA Clear [facility] Color, UA Yellow [facility] Glucose, UA Negative Negative - 1999(110) ++++ mg/dL [facility] Interpretation and review of laboratory results Normal [facility] Ketones, UA Negative Negative - 160(16) ++++ mg/dL [facility] Leukocytes, UA Moderate Negative - 500+++ Benigno/mcL [facility] Nitrite, UA Negative Negative - Positive [facility] Center pH, UA 7 5 - 9 [facility] Protein, UA Negative Negative - 1999(20) ++++ mg/dL [facility] Spec Grav, UA 1.02 1 - 1.03 [facility] Urobilinogen, UA 1.0 0.2 - 12 mg/dL [facility] IGP,APTIMA HPV,AGE GDLNon AGE GDLN ACOG TESTING Note . [facility] Comment on above: TESTS RESULT FLAG UN ITS REF RANGE LAB Clinician Provided Cytology Information Source.............Cervix;Endocervix No. of containers..01 ThinPrep Vial Age Algo ACOG Shannon... FLAG LEGEND: L-Low Normal,H-High Normal,LL-Alert Low,HH-Alert High <-Panic Low,>-Panic High,A-Abnormal,AA-Critical Abnormal Performed at: 01 =G [facility] [place] [address] [facility] [place] [address] Sandy Tarango MD, IGP, RFX APTIMA HPV ASCU Note . [facility] Comment on above: TESTS RESULT FLAG UN ITS REF RANGE LAB DIAGNOSIS: 02 NEGATIVE FOR INTRAEPITHELIAL LESION OR MALIGNANCY. THIS SPECIMEN WAS RESCREENED PART OF OUR FWS FACULTY ASSISTANT PROGRAM. Specimen adequacy: 02 Satisfactory for evaluation. Endocervical and/or squamous metaplastic cells (endocervical component) are present. Performed by: 03 Alyse Miller, Dredge Operator Supervisor (ASC) QC reviewed by: 02 Merlene Dowd, Dredge Operator Supervisor (ASC) . 02 Note: Note 02 The Pap smear is a screening test designed to aid in the detection of premalignant and malignant conditions of the uterine cervix. It is not a diagnostic procedure and should not be used as the sole means of detecting cervical cancer. Both false-positive and false-negative reports do occur. Test Methodology: Note 02 This liquid based ThinPrep(R) pap test was screened with the use of an image guided system. . 02 The HPV DNA reflex criteria were not met with this specimen result therefore, no HPV testing was performed. FLAG LEGEND: L-Low Normal,H-High Normal,LL-Alert Low,HH-Alert High <-Panic Low,>-Panic High,A-Abnormal,AA-Critical Abnormal Performed at: [address] [facility] [address] [address] Sandy Tarango MD, 03 [facility] [address] [address] V Ginger PhD, Performed at: =G - [facility] [address] [id number] Behavioral Psychologist: Sandy Tarango MD, Phone: [phone] Performed at: - [facility] [id number] Behavioral Psychologist: Sandy Tarango MD, Phone: [phone] BRUSH-SPATULA CERVIX ENDOCERVIX [facility] PAP ACOG PANEL 2: 21 to 29on 01-18-2023 . . [facility] Comment on above: Performed By: #### [id number] #### [facility] [address] [place] [address] Dr. Daisy Dwo Age Gdln ACOG Testing - Normal [facility] Comment on above: Performed By: #### [id number] #### [facility] [address] [address] [address] Daisy Dow DIAGNOSIS: Comment [facility] Comment on above: Result Comment: NEGA TIVE FOR INTRAEPITHELIAL LESION OR MALIGNANCY. Performed By: #### [id number] #### [facility] [address] [place] [address] Dr. Daisy Dow Methodology: Comment [facility] Comment on above: Result Comment: This liquid based ThinPrep(R) pap test was screened with the use of an image guided system. Performed By: #### [id number] #### [facility] [address] [place] [address] Dr. Daisy Dow Note: Comment Normal [facility] Comment on above: Result Comment: The Pap smear is a screening test designed to aid in the detection of premalignant and malignant conditions of the uterine cervix. It is not a diagnostic procedure and should not be used as the sole means of detecting cervical cancer. Both false-positive and false-negative reports do occur. . Performed By: #### 4 [id number] #### [facility] [address] [place] [address] Dr. Daisy Dow Performed by: Comment Normal [facility] Comment on above: Result Comment: Aimee Joel, Snow Removing Supervisor (ASCP) Performed By: #### 4 [id number] #### [facility] [address] [place] [address] Dr. Daisy Dow Reflex Criteria: Comment Normal [facility] Comment on above: Result Comment: The HPV DNA reflex criteria were not met with this specimen result therefore, no HPV testing was performed. . Performed By: #### 4 [id number] #### [facility] [address] [place] [address] Dr. Daisy Dow Specimen adequacy: Comment Normal [facility] Comment on above: Result Comment: Sati sfactory for evaluation. Endocervical and/or squamous metaplastic cells (endocervical component) are present. Performed By: #### 4 [id number] #### [facility] [address] [place] [address] Dr. Daisy Dow CNOVon 02-24-2021 CNOV Office Visit (GYNMN) JESSICA DOYLE ([id number]) 1995 F Date Time Provider Department 02/24/21 10:45 AM KATHERINE WAITE During your visit today, we recorded the following information about you: Blood pressure Weight Height Last Period 122/80 68.9 kg 1.626 m 01/26/21 Katherine Waite MD 02/24/2021 12:44 PM Signed [facility] CHIEF COMPLAINT: Jessica Doyle is a 25 year old female, No obstetric history on file. who presents for consultation requested by Self Referred for an opinion regarding possible BV/vaginal itching ongoing for 1 year attempted boric acid and antibiotics Patient with abnormal vaginal discharge on OCP. in a monogamous relationship She also has itching which is both internal and external She has been managed by her interventional sale consultant and referred to field applications specialist , although pt states that allergiest had nothing to add to her care after consultation with him Patient had some relief with Boric acid and symptoms returned when she ran out of the pills SUBJECTIVE: Jessica Doyle is an 25 year old female presents with Recurrent BV. Symptoms include discharge described as yellow, local irritation and vulvar itching. Onset of symptoms 1 year(s) ago, intermittent since. Postmenopausal? No. Menstrual cycle every 28-30 days Flow 4-5 days Intermenstrual spotting? No Post-coital bleeding? No PMDD? No History of sexual abuse? No History of anxiety disorder? No History of STD? No Concern for exposure to STDs? No Dysuria, urinary frequency or urgency? 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 Menopause NO: Menstrual history: NA; No past surgical history on file. No past medical history on file. No family history on file. Social History Tobacco Use - Smoking status: Not on file Substance Use Topics - Alcohol use: Not on file - Drug use: Not on file Megan Moreno Professional Poker Player offered: Patient declines. REVIEW OF SYSTEMS General: No weight loss, malaise or fevers. Skin negative Psychiatric negative Neurologic No history of headaches, syncope, paralysis, seizures or tremors Endocrine No history of thyroid disorder, diabetes, cold intolerance, heat intolerance, polydypsia Cardiovascular No history of chest pain, palpitation, orthopnea, cyanosis, pedal edema Hematologic/Lymphatic negative Respiratory No cough, hemoptysis, asthma, recent chest infection, wheezing Gastrointestinal No blood in stool, pain with BM, tarry stool, persistent diarrhea or constipation Musculoskeletal: Negative OBJECTIVE: Vulvar: Abnormal mild excoriations and fissures noted Vaginal Discharge: Physiologic Pelvic: Deferred Abdomen:Soft, Non-tender and No palpable masses ASSESSMENT: (L29.2) Vulvar itching (primary encounter diagnosis) Comment: Plan: nystatin-triamcinolone (MYCOLOG) ointment, FUNGAL CULTURE (L23.9) Allergic contact dermatitis, unspecified trigger Comment: Plan: nystatin-triamcinolone (MYCOLOG) ointment (N89.8) Vaginal discharge Comment: Plan: FUNGAL CULTURE PLAN: 1) See above 2) Tests ordered this visit Fungal Culture 3) Medication ordered during this visit No prescriptions on file. 4) Return visit in 1 month for possible biopsy if no improvement My final recommendations will be communicated back to the requesting physician by way of shared Medical record or letter via US mail. I spent a total of 30 minutes face to face with the patient. Greater than 50% of the time was spent counseling and coordinating the care based on my plan and assessment as noted. Megan Moreno Vulva Care Tips: Vulvar Self-Exam Self-examination of the vulvar is good practice. Vulvar examination will help you be aware of any changes in the vulva, if any problem occurs, you catch it early and we are able to institute treatment early. Always wash your hands before starting a self-exam, lie or sit up in a comfortable position with good lighting and a mirror. You may need to prop up on pillows or squat or kneel depending on the position which is more comfortable for you. Start from the Mons pubis just beneath the lower abdomen and groin area. Continue with the outer lips of vulvar. Be sure you separate the outer lips and look for redness, swelling, dark spots or light spots, blisters or bumps. Check the inner lips for the same remember to pull the skin of the clitoris and check the clitoral moran, followed by urethra, perineum and anal area also. Look for redness, swelling, dark spots or light spots, blisters or bumps. Some Suggested Vulvar Pain AND Itching measures If you get irritated easily, we suggest: Minimizing irritation of the vulva (area around the vag (more content not included)... Normal [facility] CNPNon 02-24-2021 CNPN Telephone (TRMN) JESSICA DOYLE ([id number]) 1995 F Date Time Provider Department 02/24/[address] [facility] During your visit today, we recorded the following information about you: Magaliscassi Kim [facility] 02/24/2021 12:15 PM Signed Pt request smaller tube of nystatin for insurance purposes. Susu Paulson RN 03/02/2021 12:36 PM Signed [facility] pharmacy calling on behalf of pt stating insurance will not cover nystatin-triamcinolone ointment as a combination but might if written as two separate prescriptions. Routing to Dr. Waite for separate scripts- one for nystatin and other for triamcinolone. (not combined) Shanda Paulson RN March 02, 2021 12:35 PM Susu Paulson RN 03/02/2021 3:26 PM Signed Spoke with pharmacy. Verified pt's name/. Pharmacy made aware separate scripts sent over and pharmacy stating will check if covered and contact pt. Shanda Paulson RN March 02, 2021 3:26 PM Allergies As of Date: 02/24/2021 (Not on File) Date Reviewed: Never Reviewed Reason for Visit: Orders [681] Order(s):nystatin (MYCOSTATIN) creamApply to affected area twice daily.Disp: 30 gRfl: 2 triamcinolone acetonide (KENALOG) 0.1 % ointmentApply to affected area twice daily.Disp: 30 gRfl: 1 Prescriptions as of 02/24/2021 Sig: NYSTATIN 100,000 UNIT/GRAM TO* Apply to affected area twice * TRIAMCINOLONE ACETONIDE 0.1 %* Apply to affected area twice * CIPRO ORAL Take by mouth. FLUCONAZOLE 150 MG TABLET Take 1 tablet by mouth once d* Problem List As Of Date: 02/24/2021 (None) Prescriptions ordered this encounter Disp Refills Start End NYSTATIN 100,000 UNIT/GRAM TOPICAL C* 30 g 2 03/02/2021 04/01/2021 Route: TOPICAL Sig: Apply to affected area twice daily. TRIAMCINOLONE ACETONIDE 0.1 % TOPICA* 30 g 1 03/02/2021 08/29/2021 Route: TOPICAL Sig: Apply to affected area twice daily. Medications Discontinued During This Encounter Prescriptions - nystatin-triamcinolone (MYCOLOG) ointment (Discontinued) Apply 1 application to affected area twice daily. Encounter Status:Closed by KATHERINE WAITE on 03/02/21 Normal [facility] Fungus Screenon 02-24-2021 Fungus Screen Sp. Request/Comment: - Swab Culture Result - No growth 11 days Normal [facility] Comment on above: Performed By: #### F UNGSC #### [facility] [address] [address] Vital Signs Date Time Vital Sign Value Performing Clinician Jin jefferson 05-06-2025 08:38-0400 Body mass index (BMI) [Ratio] 29.94 kg/m2 Gely VELASCO Work Phone: [facility] 05-06-2025 08:38-0400 Body weight 76.66 kg Gely VELASCO Work Phone: [facility] 05-06-2025 08:38-0400 Diastolic blood pressure 86 mm[Hg] Gely VELASCO Work Phone: [facility] 05-06-2025 08:38-0400 Systolic blood pressure 128 mm[Hg] Gely VELASCO Work Phone: [facility] 04-08-2025 12:14-0400 Body mass index (BMI) [Ratio] 29.01 kg/m2 Geneva Mars Work Phone: [facility] 04-08-2025 12:14-0400 Body weight 74.28 kg Jarret Luba DO Work Phone: [facility] 04-08-2025 12:14-0400 Diastolic blood pressure 80 mm[Hg] Jarret Luba DO Work Phone: [facility] 04-08-2025 12:14-0400 Systolic blood pressure 124 mm[Hg] Jarret Luba DO Work Phone: [facility] 03-21-2025 09:28-0400 Body mass index (BMI) [Ratio] 28.31 kg/m2 Noms Nurse [facility] 03-21-2025 09:28-0400 Body weight 72.48 kg Nom Nurse [facility] 01-20-2025 08:35-0400 Body mass index (BMI) [Ratio] 28.12 kg/m2 Jarret Luba DO Work Phone: [facility] 01-20-2025 08:35-0400 Body weight 72.01 kg Jarret Luba DO Work Phone: [facility] 01-20-2025 08:35-0400 Diastolic blood pressure 82 mm[Hg] Jarret Luba DO Work Phone: [facility] 01-20-2025 08:35-0400 Systolic blood pressure 120 mm[Hg] Jarret Luba DO Work Phone: [facility] Encounters Encounter Date Encounter Type Care Provider Facility Start: 05-06-2025 End: 05-06-2025 Bamboo flowsheet Gely VELASCO Work Phone: [facility] Start: 05-06-2025 End: 05-07-2025 Bamboo flowsheet Gely VELASCO Work Phone: [facility] Start: 05-06-2025 End: 05-07-2025 External Result Encounter Gely VELASCO Work Phone: [facility] Unsolicited Start: 05-06-2025 End: 05-06-2025 flow sheet Gely VELASCO Work Phone: [facility] Comment on above: Second trimester pre gnancy ([facility]); 16 weeks gestation of ([facility]); Screening, , for anatomic survey ([facility]); Vaginal discharge Start: 05-06-2025 End: 05-06-2025 ambulatory GELY MANJARREZ Not Available Start: 04-08-2025 End: 04-08-2025 Bamboo flowsheet Jarret Luba DO Work Phone: [facility] Start: 04-08-2025 End: 04-08-2025 Bamboo flowsheet Jarret Luba DO Work Phone: [facility] Start: 04-08-2025 End: 04-08-2025 flow sheet Jarret Luba DO Work Phone: [facility] Comment on above: First trimester preg dina ([facility]); 12 weeks gestation of ([facility]) Start: 04-08-2025 End: 04-08-2025 ambulatory JARRET LUBA Not Available Start: 03-28-2025 End: 03-29-2025 External Result Encounter Jarret Luba DO Work Phone: [facility] Unsolicited Start: 03-28-2025 End: 03-29-2025 External Result Encounter Jarret Luba DO Work Phone: [facility] Unsolicited Start: 03-28-2025 End: 03-28-2025 ambulatory Huy Oberer Facility:[facility] Start: 03-21-2025 End: 03-21-2025 Office outpatient visit 5 minutes [facility] Luba Nurse [facility] Comment on above: GA: 10w0d Start: 03-21-2025 End: 03-21-2025 ambulatory JARRET LUBA Not Available Start: 01-20-2025 End: 01-20-2025 Bamboo flowsheet Jarret Luba DO Work Phone: [facility] Start: 01-20-2025 End: 01-27-2025 Bamboo flowsheet Jarret Luba DO Work Phone: [facility] Start: 01-20-2025 End: 01-27-2025 Clinisync Result Encounter Jarret Luba DO Work Phone: [facility] Unsolicited Start: 01-20-2025 End: 01-20-2025 Patient encounter procedure Jarret Luba DO Work Phone: [facility] Start: 01-20-2025 End: 01-20-2025 Periodic preventive med est patient 18-39 yrs Jarret Luba DO Work Phone: [facility] Comment on above: Well woman exam with routine gynecological exam Start: 01-20-2025 End: 01-20-2025 ambulatory JARRET VERDUZCO Not Available Start: 01-11-2023 End: 01-11-[address] JARRET VERDUZCO . Facility: Procedures Date Procedure Procedure Detail Performing Clinician Start: 05-06-2025 RECURRENT VAGINITIS (HTRX) Gely VELASCO Work Phone: Start: 05-06-2025 Urnls dip stick/tabl et rgnt non-auto w/o micrscp Gely VELASCO Work Phone: Start: 04-08-2025 Urnls dip stick/tabl et rgnt non-auto w/o micrscp Jarret Luba DO Work Phone: Start: 03-28-2025 Antibody screen [facility] Comment on above: Result Comment: PERF ORMED BY: [facility] [address] [place] [address] PATHOLOGIST EXECUTIVE ADVISOR ARNALDO RENO M.D. Start: 03-28-2025 Complete blood count with white cell differential, automated Jarret Luba DO Work Phone: Start: 03-28-2025 Culture bacterial quanttative colony count urine Jarret Luba DO Work Phone: Start: 03-28-2025 Drug test prsmv read direct optical obs pr date Jarret Luba DO Work Phone: Start: 03-28-2025 Hemoglobin glycosyla carlos eduardo a1c Jarret Luba DO Work Phone: Start: 03-28-2025 HEPATITIS B SURFACE ANTIGEN ([facility]) Jarret Verduzco DO Work Phone: Start: 03-21-2025 End: 03-21-2025 Urnls dip stick/tablet rgnt non-auto w/o micrscp Jarret Moono DO Work Phone: Start: 01-20-2025 IGP,APTIMA HPV,AGE GDLN Jarret Gargzio DO Work Phone: Plan of Treatment Date Care Activity Detail Author Start: 01-26-2026 End: 01-26-2026 Patient encounter procedure [facility] Start: 06-03-2025 End: 06-03-2025 Patient encounter procedure 06/03/2025 9:40 AM EDT Routine [facility] [address] [place] [place] [address] Jarret Verduzco, DO [address] [place] [address] [facility] Start: 06-03-2025 End: 06-03-2025 Professional / ancillary services management 06/03/2025 8:30 AM EDT Ancillary Procedure [facility] [address] [place] [address] [facility] Start: 05-06-2025 End: 07-07-2025 Alpha fetoprotein, maternal Alpha fetoprotein, maternal Lab Routine 16 weeks gestation of ([facility]) Expected: 05/06/2025 (Approximate), Expires: 07/07/2025 [facility] Comment on above: Expected: 05/06/2025 (Approximate), Expires: 07/07/2025 Start: 05-06-2025 End: 08-06-2025 US for US OB 14+ weeks anatomy scan Imaging Routine Screening, , for anatomic survey ([facility]) Expected: 05/06/2025, Expires: 08/06/2025 [facility] Comment on above: Expected: 05/06/2025 , Expires: 08/06/2025 Start: 05-06-2025 End: 05-06-2025 Patient encounter procedure 05/06/2025 8:50 AM EDT Routine [facility] [address] [place] [id number] Gely Manjarrez PA [address] [place] [address] Arrived [facility] Comment on above: Arrived Start: 04-08-2025 End: 04-08-2025 Patient encounter procedure [facility] Comment on above: Arrived Start: 03-21-2025 End: 03-21-2026 ABO/Rh ABO/Rh Lab Routine Missed menses , unspecified gestational age ([facility]) Expected: 03/21/2025 (Approximate), Expires: 03/21/2026 [facility] Comment on above: Expected: 03/21/2025 (Approximate), Expires: 03/21/2026 Start: 03-21-2025 End: 03-21-2026 Blood type and Indirect antibody screen panel - Blood Type and screen Lab Routine Missed menses , unspecified gestational age ([facility]) Expected: 03/21/2025 (Approximate), Expires: 03/21/2026 [facility] Work Phone: Comment on above: Expected: 03/21/2025 (Approximate), Expires: 03/21/2026 Start: 03-21-2025 End: 03-21-2026 Drugs of abuse panel - Urine by Screen method Rapid drug screen, urine Lab Routine , unspecified gestational age ([facility]) Encounter for supervision of normal first in first trimester ([facility]) Expected: 03/21/2025 (Approximate), Expires: 03/21/2026 [facility] Comment on above: Expected: 03/21/2025 (Approximate), Expires: 03/21/2026 Start: 01-20-2025 End: 01-20-2025 Patient encounter procedure 01/20/2025 8:30 AM EDT Office Visit [facility] [address] [place] [address] Jarret Verduzco DO [address] [place] [address] Arrived [facility] Comment on above: Arrived Bacteria identified in Urine by Culture Urine culture Microbiology Routine Missed menses Ordered: 03/21/2025 [facility] Comment on above: Ordered: 03/21/2025 Bacteria identified in Urine by Culture Urine culture Microbiology Routine 03/28/2025 1:25 PM EDT [facility] Work Phone: CBC W Auto Different ial panel - Blood CBC and differential Lab Routine Missed menses , unspecified gestational age ([facility]) Ordered: 03/21/2025 [facility] Comment on above: Ordered: 03/21/2025 CHLAMYDIA TRACHOMATI S (GENITO/STI) CHLAMYDIA TRACHOMATIS (GENITO/STI) Lab Routine Vaginal discharge Ordered: 05/06/2025 [facility] Comment on above: Ordered: 05/06/2025 Cytology Cervical or vaginal smear or scraping study Pap Smear Pathology and Cytology Routine Well woman exam with routine gynecological exam Ordered: 01/20/2025 [facility] Work Phone: Comment on above: Ordered: 01/20/2025 HCV ANTIBODY CASCADE HCV ANTIBOD Y CASCADE Lab Routine 03/28/2025 1:25 PM EDT [facility] Work Phone: Hemoglobin A1c/Hemoglobin.total in Blood Hemoglobin A1c Lab Routine Missed menses , unspecified gestational age ([facility]) Ordered: 03/21/2025 [facility] Comment on above: Ordered: 03/21/2025 Hepatitis B virus surface Ag [Presence] in Serum or Plasma by Immunoassay Hepatitis B surface antigen Lab Routine Missed menses , unspecified gestational age ([facility]) Ordered: 03/21/2025 [facility] Comment on above: Ordered: 03/21/2025 Hepatitis C virus Ab [Presence] in Serum or Plasma by Immunoassay Hepatitis C antibody Lab Routine Missed menses , unspecified gestational age ([facility]) Ordered: 03/21/2025 [facility] Comment on above: Ordered: 03/21/2025 HIV-1/HIV-2 antigen/antibody combination immunoassay HIV-1 and HIV-2 antibodies Lab Routine Missed menses , unspecified gestational age ([facility]) Ordered: 03/21/2025 [facility] Comment on above: Ordered: 03/21/2025 Neisseria gonorrhoea e DNA [Presence] in Unspecified specimen by DENIS with probe detection Neisseria gonorrhea DNA probe, direct Lab Routine Vaginal discharge Ordered: 05/06/2025 [facility] Comment on above: Ordered: 05/06/2025 Reagin Ab [Presence] in Serum by RPR RPR Lab Routine Missed menses , unspecified gestational age ([facility]) Ordered: 03/21/2025 [facility] Comment on above: Ordered: 03/21/2025 Rubella antibody, IgG Rubella an tibody, IgG Lab Routine Missed menses , unspecified gestational age ([facility]) Ordered: 03/21/2025 [facility] Comment on above: Ordered: 03/21/2025 Rubella antibody, IgG Rubella an tibody, IgG Lab Routine 03/28/2025 1:25 PM EDT [facility] Work Phone: SURESWAB(R) ADVANCED VAGINITIS PLUS, TMA SURESWAB(R) ADVANCED VAGINITIS PLUS, TMA Pathology and Cytology Routine Vaginal discharge Ordered: 05/06/2025 [facility] Work Phone: Comment on above: Ordered: 05/06/2025 Payers Date Payer Category Payer Self-pay 2025 Private Health Insurance [employer] [id number] 2025 Unknown [id number] 2022 Managed Care O (unspecified) [id number] 1995 Unknown [id number] 593 1995 Unknown [id number] 1259 1995 Unknown [id number] 1259 1995 Unknown [id number]. 9 1995 Unknown [id number] 9 1995 Unknown [id number]. 1259 1959 Unknown [id number] Unknown [id number] 531 Social History Date Type Detail Facility Tobacco smoking stat [facility] Tobacco smoking consumption unknown [facility] Start: 1995 Sex assigned at Not on file [facility] Gender identity Not [facility] Start: 01-24-2025 [facility] Goals Date Patient Goal Desired Activity /State Personal health goal History of Present illness Narrative 05-06-2025 KRISTA Crawford - 05/06/2025 8:50 AM EDT Note Date & Type Note Facility 05-06-2025 History of Presen t illness Narrative Reason for Appointment: Patient ID: Jessica Doyle is a 29 y.o. female who presents for Routine Visit Patient presents today for Return OB appointment. MEDICATIONS Current Outpatient Medications Medication Instructions Vit-Fe Fumarate-FA ( Vitamins) 28-0.8 MG tablet 1 tablet, Oral, Daily ALLERGIES No Known Allergies PROBLEMS Active Ambulatory Problems Diagnosis Date Noted No Active Ambulatory Problems Resolved Ambulatory Problems Diagnosis Date Noted No Resolved Ambulatory Problems No Additional Past Medical History HISTORY PAST MEDICAL HISTORY SOCIAL HISTORY No past medical history on file. Social History Tobacco Use Smoking status: Not on file Smokeless tobacco: Not on file Substance Use Topics Alcohol use: Not on file Drug use: Not on file FAMILY HISTORY No family history on file. SURGICAL HISTORY No past surgical history on file. REVIEW OF SYSTEMS Review of Systems: Review of Systems Constitutional: Negative. HENT: Negative. Eyes: Negative. Respiratory: Negative. Cardiovascular: Negative. Gastrointestinal: Negative. Genitourinary: Negative. Musculoskeletal: Negative. Skin: Negative. Neurological: Negative. All other systems reviewed and are negative. Hematological: Negative. Endocrine: Negative. Allergic/Immunologic: Negative. OBJECTIVE Objective: Physical Exam Constitutional: Appearance: Normal appearance. She is normal weight. HENT: Head: Normocephalic. Cardiovascular: Rate and Rhythm: Normal rate. Pulses: Normal pulses. Pulmonary: Effort: Pulmonary effort is normal. Breath sounds: Normal breath sounds. Abdominal: Palpations: Abdomen is soft. Musculoskeletal: General: Normal range of motion. Neurological: General: No focal deficit present. Mental Status: She is alert and oriented to person, place, and time. Psychiatric: Mood and Affect: Mood normal. Behavior: Behavior normal. Thought Content: Thought content normal. Judgment: Judgment normal. Vitals and nursing note reviewed. Vitals: Estimated body mass index is 29.94 kg/m as calculated from the following: Height as of 01/11/23: 5' 3 . Weight as of this encounter: 169 lb. BP: 128/86 Patient's last menstrual period was 01/16/2025. ASSESSMENT & PLAN ICD-10-CM 1. Second trimester ([facility]) Z34.92 POCT urinalysis dipstick manually resulted 2. 16 weeks gestation of ([facility]) Z3A.16 Alpha fetoprotein, maternal Alpha fetoprotein, maternal 3. Screening, , for anatomic survey ([facility]) Z36.89 US OB 14+ weeks anatomy scan US OB 14+ weeks anatomy scan 4. Vaginal discharge N89.8 SURESWAB(R) ADVANCED VAGINITIS PLUS, TMA CHLAMYDIA TRACHOMATIS (GENITO/STI) Neisseria gonorrhea DNA probe, direct Return OB: Patient presents today for a routine obstetrics appointment. Patient is currently 16w4d . Patient states she is doing well but has complaints of being tired due to current . Patient has verbalizes frequent movement. Orders Placed This Encounter Procedures US OB 14+ weeks anatomy scan CHLAMYDIA TRACHOMATIS (GENITO/STI) Neisseria gonorrhea DNA probe, direct Alpha fetoprotein, maternal POCT urinalysis dipstick manually resulted Follow Up: Patient is to return to office in 4 week for routine OB appointment. Documented by KRISTA Crawford on behalf of: KRISTA Crawford documented in this encounter [facility] History of Present illness Narrative 04-08-2025 KRISTA Crawford - 04/08/2025 11:40 AM EDT Note Date & Type Note Facility 04-08-2025 History of Presen t illness Narrative Reason for Appointment: Patient ID: Jessica Doyle is a 29 y.o. female who presents for Routine Visit Patient presents today for Return OB appointment. MEDICATIONS Current Outpatient Medications Medication Instructions Vit-Fe Fumarate-FA ( Vitamins) 28-0.8 MG tablet 1 tablet, Oral, Daily ALLERGIES No Known Allergies PROBLEMS Active Ambulatory Problems Diagnosis Date Noted No Active Ambulatory Problems Resolved Ambulatory Problems Diagnosis Date Noted No Resolved Ambulatory Problems No Additional Past Medical History HISTORY PAST MEDICAL HISTORY SOCIAL HISTORY No past medical history on file. Social History Tobacco Use Smoking status: Not on file Smokeless tobacco: Not on file Substance Use Topics Alcohol use: Not on file Drug use: Not on file FAMILY HISTORY No family history on file. SURGICAL HISTORY No past surgical history on file. REVIEW OF SYSTEMS Review of Systems: Review of Systems Constitutional: Negative. HENT: Negative. Eyes: Negative. Respiratory: Negative. Cardiovascular: Negative. Gastrointestinal: Negative. Genitourinary: Negative. Musculoskeletal: Negative. Skin: Negative. Neurological: Negative. All other systems reviewed and are negative. Hematological: Negative. Endocrine: Negative. Allergic/Immunologic: Negative. OBJECTIVE Objective: Physical Exam Constitutional: Appearance: Normal appearance. She is normal weight. HENT: Head: Normocephalic. Cardiovascular: Rate and Rhythm: Normal rate. Pulses: Normal pulses. Pulmonary: Effort: Pulmonary effort is normal. Breath sounds: Normal breath sounds. Abdominal: Palpations: Abdomen is soft. Musculoskeletal: General: Normal range of motion. Neurological: General: No focal deficit present. Mental Status: She is alert and oriented to person, place, and time. Psychiatric: Mood and Affect: Mood normal. Behavior: Behavior normal. Thought Content: Thought content normal. Judgment: Judgment normal. Vitals and nursing note reviewed. Vitals: Estimated body mass index is 29.01 kg/m as calculated from the following: Height as of 01/11/23: 5' 3 . Weight as of this encounter: 163 lb 12 oz. BP: 124/80 Patient's last menstrual period was 01/16/2025. ASSESSMENT & PLAN ICD-10-CM 1. First trimester ([facility]) Z34.91 POCT urinalysis dipstick manually resulted 2. 12 weeks gestation of ([facility]) Z3A.12 Return OB: Patient presents today for a routine obstetrics appointment. Patient is currently 12w4d . Patient states she is doing well but has complaints of being tired due to current . Patient has verbalizes frequent movement. Orders Placed This Encounter Procedures POCT urinalysis dipstick manually resulted Follow Up: Patient is to return to office in 4 week for routine OB appointment. Documented by KRISTA Crawford on behalf of: Jarret Verduzco DO documented in this encounter [facility] History of Present illness Narrative 03-21-2025 Vero Garcia LPN - 03/21/2025 9:00 AM EDT Note Date & Type Note Facility 03-21-2025 History of Presen t illness Narrative Reason for Appointment: Patient ID: Jessica Doyle is a 29 y.o. female who presents for Amenorrhea Patient presents today for a Nurse OB Intake appointment. Patient is 10w0d with a Estimated Date of Delivery: 10/17/25 OB History Para Term AB Living 1 SAB IAB Ectopic Multiple Live Births # Outcome Date GA Lbr Jack/2nd Weight Sex Type Anes PTL Lv 1 Current Current Medications: currently has no medications in their medication list. Medical History: Active Ambulatory Problems Diagnosis Date Noted No Active Ambulatory Problems Resolved Ambulatory Problems Diagnosis Date Noted No Resolved Ambulatory Problems No Additional Past Medical History No family history on file. Social History Tobacco Use Smoking status: Not on file Smokeless tobacco: Not on file Substance Use Topics Alcohol use: Not on file Drug use: Not on file No past surgical history on file. No Known Allergies Vitals: Estimated body mass index is 28.31 kg/m as calculated from the following: Height as of 23: 5' 3 . Weight as of this encounter: 159 lb 12.8 oz. BP: Patient's last menstrual period was 01/16/2025. Assessment/Plan Diagnoses and all orders for this visit: Missed menses - Type and screen; Future - ABO/Rh; Future - CBC and differential - Hemoglobin A1c - RPR - Rubella antibody, IgG - Hepatitis B surface antigen - Hepatitis C antibody - HIV-1 and HIV-2 antibodies - Urine culture - POCT , urine manually resulted - POCT urinalysis dipstick manually resulted , unspecified gestational age ([facility]) - Type and screen; Future - ABO/Rh; Future - CBC and differential - Hemoglobin A1c - RPR - Rubella antibody, IgG - Hepatitis B surface antigen - Hepatitis C antibody - HIV-1 and HIV-2 antibodies - Rapid drug screen, urine; Future Encounter for supervision of normal first in first trimester ([facility]) - Rapid drug screen, urine; Future Nurse Note: OB Intake: Patient presents today for first OB visit. Patients history has been reviewed in great detail including any potential risks. Patient signed consent forms and patient desires testing in both trimesters. Patient currently has no complaints and has been advised to drink 6-8 glasses of water a day, eat no raw or undercooked meat, and [facility] Patient has also been advised to not change litter boxes and eat 6 small meals a day. Patient has been consulted regarding the do's and don'ts of . Patient was given labs and all questions and concerns were answered. Follow Up: Patient is to return in 4 weeks for routine OB appointment. Follow Up: Patient is to have labs drawn at directed and return to office for initial OB appointment with provider. Patient may call office as needed with any concerns or questions. Nurse Visit Completed by: Vero Garcia LPN documented in this encounter [facility] History of Present illness Narrative 01-20-2025 Samia Odom NP - 01/20/2025 8:30 AM EDT Note Date & Type Note Facility 01-20-2025 History of Presen t illness Narrative Reason for Appointment: Patient ID: Jessica Doyle is a 29 y.o. female who presents for [facility] Women Visit Patient presents today for Annual Exam. MEDICATIONS No current outpatient medications ALLERGIES No Known Allergies PROBLEMS Active Ambulatory Problems Diagnosis Date Noted No Active Ambulatory Problems Resolved Ambulatory Problems Diagnosis Date Noted No Resolved Ambulatory Problems No Additional Past Medical History HISTORY PAST MEDICAL HISTORY SOCIAL HISTORY History reviewed. No pertinent past medical history. Social History Tobacco Use Smoking status: Not on file Smokeless tobacco: Not on file Substance Use Topics Alcohol use: Not on file Drug use: Not on file FAMILY HISTORY No family history on file. SURGICAL HISTORY History reviewed. No pertinent surgical history. REVIEW OF SYSTEMS Review of Systems: Review of Systems Constitutional: Negative. HENT: Negative. Eyes: Negative. Respiratory: Negative. Cardiovascular: Negative. Gastrointestinal: Negative. Genitourinary: Negative. Musculoskeletal: Negative. Skin: Negative. Neurological: Negative. All other systems reviewed and are negative. Hematological: Negative. Endocrine: Negative. Allergic/Immunologic: Negative. OBJECTIVE Objective: Physical Exam Constitutional: Appearance: Normal appearance. She is well-developed. Genitourinary: Vulva normal. Breasts: Breasts are soft. Right: Normal. Left: Normal. Cardiovascular: Rate and Rhythm: Normal rate and regular rhythm. Pulmonary: Effort: Pulmonary effort is normal. Breath sounds: Normal breath sounds. Abdominal: General: Bowel sounds are normal. There is no distension. Palpations: Abdomen is soft. Tenderness: There is no abdominal tenderness. There is no guarding or rebound. Musculoskeletal: General: No swelling. Normal range of motion. Right lower leg: No edema. Left lower leg: No edema. Neurological: Mental Status: She is alert and oriented to person, place, and time. Skin: General: Skin is warm and dry. Psychiatric: Mood and Affect: Mood normal. Behavior: Behavior normal. Vitals and nursing note reviewed. Exam conducted with a ivf embryologist present. Vitals: Estimated body mass index is 28.12 kg/m as calculated from the following: Height as of 23: 5' 3 . Weight as of this encounter: 158 lb 12 oz. BP: 120/82 Patient's last menstrual period was 01/16/2025. ASSESSMENT & PLAN ICD-10-CM 1. Well woman exam with routine gynecological exam Z01.419 Pap Smear Annual Exam: Patient presents today for an annual exam. Patient states she is doing well and has no complaints. Pap was obtained without difficulty. No orders of the defined types were placed in this encounter. Follow Up: Patient is to return in one year for annual unless needed otherwise. Documented by Samia Odom NP on behalf of: Jarret Verduzco DO documented in this encounter [facility] Progress note 02-24-2021 Note Date & Type Note Facility 02-24-2021 Note HNO ID: [id number] Author: Katherine Waite MD Service: ? Author Type: Physician Type: Progress Notes Filed: 02/24/2021 12:44 PM Note Text: [facility] CHIEF COMPLAINT: Jessica Doyle is a 25 year old female, No obstetric history on file. who presents for consultation requested by Self Referred for an opinion regarding possible BV/vaginal itching ongoing for 1 year attempted boric acid and antibiotics Patient with abnormal vaginal discharge on OCP. in a monogamous relationship She also has itching which is both internal and external She has been managed by her interventional sale consultant and referred to field applications specialist , although pt states that allergiest had nothing to add to her care after consultation with him Patient had some relief with Boric acid and symptoms returned when she ran out of the pills SUBJECTIVE: Jessica Doyle is an 25 year old female presents with Recurrent BV. Symptoms include discharge described as yellow, local irritation and vulvar itching. Onset of symptoms 1 year(s) ago, intermittent since. Postmenopausal? No. Menstrual cycle every 28-30 days Flow 4-5 days Intermenstrual spotting? No Post-coital bleeding? No PMDD? No History of sexual abuse? No History of anxiety disorder? No History of STD? No Concern for exposure to STDs? No Dysuria, urinary frequency or urgency? 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 Menopause NO: Menstrual history: NA; No past surgical history on file. No past medical history on file. No family history on file. Social History Tobacco Use - Smoking status: Not on file Substance Use Topics - Alcohol use: Not on file - Drug use: Not on file Megan Moreno Professional Poker Player offered: Patient declines. REVIEW OF SYSTEMS General: No weight loss, malaise or fevers. Skin negative Psychiatric negative Neurologic No history of headaches, syncope, paralysis, seizures or tremors Endocrine No history of thyroid disorder, diabetes, cold intolerance, heat intolerance, polydypsia Cardiovascular No history of chest pain, palpitation, orthopnea, cyanosis, pedal edema Hematologic/Lymphatic negative Respiratory No cough, hemoptysis, asthma, recent chest infection, wheezing Gastrointestinal No blood in stool, pain with BM, tarry stool, persistent diarrhea or constipation Musculoskeletal: Negative OBJECTIVE: Vulvar: Abnormal mild excoriations and fissures noted Vaginal Discharge: Physiologic Pelvic: Deferred Abdomen:Soft, Non-tender and No palpable masses ASSESSMENT: (L29.2) Vulvar itching (primary encounter diagnosis) Comment: Plan: nystatin-triamcinolone (MYCOLOG) ointment, FUNGAL CULTURE (L23.9) Allergic contact dermatitis, unspecified trigger Comment: Plan: nystatin-triamcinolone (MYCOLOG) ointment (N89.8) Vaginal discharge Comment: Plan: FUNGAL CULTURE PLAN: 1) See above 2) Tests ordered this visit Fungal Culture 3) Medication ordered during this visit No prescriptions on file. 4) Return visit in 1 month for possible biopsy if no improvement My final recommendations will be communicated back to the requesting physician by way of shared Medical record or letter via US mail. I spent a total of 30 minutes face to face with the patient. Greater than 50% of the time was spent counseling and coordinating the care based on my plan and assessment as noted. Megan Moreno Vulva Care Tips: Vulvar Self-Exam Self-examination of the vulvar is good practice. Vulvar examination will help you be aware of any changes in the vulva, if any problem occurs, you catch it early and we are able to institute treatment early. Always wash your hands before starting a self-exam, lie or sit up in a comfortable position with good lighting and a mirror. You may need to prop up on pillows or squat or kneel depending on the position which is more comfortable for you. Start from the Mons pubis just beneath the lower abdomen and groin area. Continue with the outer lips of vulvar. Be sure you separate the outer lips and look for redness, swelling, dark spots or light spots, blisters or bumps. Check the inner lips for the same remember to pull the skin of the clitoris and check the clitoral moran, followed by urethra, perineum and anal area also. Look for redness, swelling, dark spots or light spots, blisters or bumps. Some Suggested Vulvar Pain AND Itching measures If you get irritated easily, we suggest: Minimizing irritation of the vulva (area around the vagina): Wear white cotton underwear. Avoid synthetic fabrics and tight clothing. Sleep wearing shorts or pajama bottoms without underwear. Shower as soon as possible after exercise. Avoid clothing detergents and soaps with perfumes or dyes. Use warm (n (more content not included)... [facility] Evaluation note Note Date & Type Note Facility Evaluation note Diagnosis Well woman exam with routine gynecological exam Routine gynecological examination documented in this encounter [facility] Evaluation note Note Date & Type Note Facility Evaluation note Diagnosis Missed menses , unspecified gestational age ([facility]) Encounter for supervision of normal first in first trimester ([facility]) documented in this encounter [facility] Evaluation note Note Date & Type Note Facility Evaluation note Diagnosis First trimester ([facility]) state, incidental 12 weeks gestation of ([facility] documented in this encounter [facility] Evaluation note Note Date & Type Note Facility Evaluation note Diagnosis Second trimester ([facility]) state, incidental 16 weeks gestation of ([facility]) Screening, , for anatomic survey ([facility]) Encounter for anatomic survey Vaginal discharge Leukorrhea, not specified as infective documented in this encounter [facility] Summary Purpose Family History No Family History Records FoundNo Family History Records FoundNo Family History Records FoundNo Family History Records Found Advance Directives No Advanced Directives Records FoundNo Advanced Directives Records FoundNo Advanced Directives Records FoundNo Advanced Directives Records Found Additional Source Comments INFORMATION SOURCE (unrecogn ized section and content) DATE CREATED AUTHOR 11/09/2021 [facility] DATE CREATED AUTHOR AUTHOR'S ORGANIZ ATION 01/18/2023 [facility] DATE CREATED AUTHOR AUTHOR'S ORGANIZ ATION 04/05/2025 [facility] DATE CREATED AUTHOR AUTHOR'S ORGANIZ ATION 05/07/2025 [facility] EPIC Care Teams (unrecognized sec tion and content) General I Farmworker Relationship Specialty Start Date End Date Huy Degroot MD PCP - General 01/09/24 General I Farmworker Relationship Specialty Start Date End Date Huy Degroot MD PCP - General 01/09/24 General I Farmworker Relationship Specialty Start Date End Date Huy Degroot MD PCP - General 01/09/24 General I Farmworker Relationship Specialty Start Date End Date Huy Degroot MD [address] [place] [phone] PCP - General 01/09/24 General I Farmworker Relationship Specialty Start Date End Date Huy Degroot MD [address] [place] [phone] PCP - General 01/09/24 General I Farmworker Relationship Specialty Start Date End Date uHy Degroot MD [address] [place] [phone] PCP - General 01/09/24 General I Farmworker Relationship Specialty Start Date End Date Huy Degroot MD [address] [place] [phone] PCP - General 01/09/24 General I Farmworker Relationship Specialty Start Date End Date Huy Degroot MD [address] [place] [place] [phone] PCP - General 01/09/24 General I Farmworker Relationship Specialty Start Date End Date Huy Degroot MD [address] [place] [phone] PCP - General 01/09/24 Reason for Visit (unrecogniz ed section and content) Reason Comments Well Women Visit Reason Comments Amenorrhea Reason Comments Routine Visit FOR RECORDS PERTAINING TO PATIENTS WHO ARE OR HAVE BEEN ENROLLED IN A CHEMICAL DEPENDENCY/SUBSTANCEABUSE PROGRAM, SOME INFORMATION MAY BE OMITTED. This clinical summary was aggregated from multiple sources. Caution should be exercised in using it in the provision of clinical care. This summary normalizes information from multiple sources, and as a consequence, information in this document may materially change the coding, format and clinical context of patient data. In addition, data may be omitted in some cases. CLINICAL DECISIONS SHOULD BE BASED ON THE PRIMARY CLINICAL RECORDS. [facility] [employer] [facility]. provides no warranty or guarantee of the accuracy or completeness of information in this document.
== END 2025-06-03 08:15 | disposition home or self-care (01) ==
PROVIDERS: PCP Family Medicine; Visit Provider Physician Assistant
DX: Z36.89 Encounter for other specified antenatal screening (principal); Z3A.20 20 weeks gestation of pregnancy
CPT/HCPCS: 76805; 76817

== ENCOUNTER 2025-09-23 12:25 | Outpatient (REF) | payer OTHER, SELFPAY ==
--- OUTSIDE RECORDS SUMMARY | 2025-09-09 08:30 | XMS_ITS | Encounter Summary ---
Author Organization [facility] Address [address] [place] [address] Care Team Providers Care Primary Counselor Name Role Phone Huy Degroot MD Primary Care Provider [phone] Reason for Visit * ReasonCommentsRoutine Visit Encounter Details DateTypeDepartmentCare Team (Latest Contact Info)Zyvymcdcomy89/02/2025 8:30 AM ESTRoutine [facility] [address] [place] [phone] Juliocesar Verduzco DO [address] [place], [place] [id number] Third trimester ([facility]); 34 weeks gestation of ([facility]); Excessive growth affecting management of , antepartum, single or unspecified fetus ([facility]) Social History Tobacco UseTypesPacks/DayYears UsedDateSmoking Tobacco: Never Assessed Estimated Date of SybbchdlNbpdbqvkXwf08/09/2026Based on UltrasoundSex and Gender InformationValueDate RecordedSex Assigned at BirthNot on fileLegal SexFemale 12/21/2022 6:50 PM EDTGender IdentityNot on fileSexual OrientationNot on file documented as of this encounter Last Filed Vital Signs Vital SignReadingTime TakenCommentsBlood Uqoeuyqy216/7409/09/2025 8:47 AM EST Pulse--Temperature--Respiratory Rate--Oxygen Saturation--Inhaled Oxygen Concentration--Xelzoc39.3 kg (199 lb)09/09/2025 8:47 AM ESTHeight--Body Mass Index35.2504 12:00 PM EDTdocumented in this encounter Progress Notes * Annia Reynaga, NEO - 09/09/2025 8:30 AM EST Reason for Appointment: Patient ID: Jessica Ceja is a 29 y.o. female who presents for Routine Visit Patient presents today for Return OB appointment. MEDICATIONS Current Outpatient Medications Medication Instructions omeprazole (PRILOSEC) 20 mg, Oral, Daily before breakfast, Do not crush or chew. Vit-Fe Fumarate-FA ( Vitamins) 28-0.8 MG tablet [...] Constitutional: Appearance: Normal appearance. She is well-developed. Cardiovascular: Rate and Rhythm: Normal rate and [...] nursing note reviewed. Exam conducted with a food safety specialist present. Vitals: Estimated body mass index is 35.25 kg/m?? as calculated from the following: Height as of 01/11/23: 5' 3 . Weight as of this encounter: 199 lb. BP: 118/74 Patient's last menstrual period was 01/16/2025. Assessment/Plan ICD-10-CM 1. Third trimester ([facility]) Z34.93 POCT urinalysis dipstick manually resulted 2. 34 weeks gestation of ([facility]) Z3A.34 Assessment/Plan Return OB: Patient presents today for a routine obstetrics appointment. Patient is currently 34w4d . Patient states she is doing well but has complaints of being tired due to current . Patient has verbalizes frequent movement. labor precautions was discussed/given and patient was instructed to perform kick counts three times a day. Pt has complaints of swelling in hand worse in the am. Orders Placed This Encounter Procedures POCT urinalysis dipstick manually resulted Follow Up: Patient is to return to office in 2 week for routine OB appointment. Documented by Annia Reynaga LPN on behalf of: Gely Berumen PA-C documented in this encounter Plan of Treatment DateTypeDepartmentCare Team (Latest Contact Info)Uvycakcphvz25/23/2025 8:30 AM ESTRoutine [facility] [address] [place] [address] [place] [phone] Juliocesar Verduzco, DO [address] [place], [place] [phone] 01/26/2026 8:30 AM EDTOffice Visit [facility] [address] [place] [address] Juliocesar Verduzco, [address] [place], [place] [phone] NameTypePriorityAssociated DiagnosesDate/TimeUS OB follow up transabdominal approachImagingRoutine Excessive growth affecting management of , antepartum, single or unspecified fetus ([facility]) 09/23/2025 8:39 AM ESTNameTypePriorityAssociated DiagnosesOrder ScheduleUS OB follow up transabdominal approachImagingRoutine Excessive growth affecting management of , antepartum, single or unspecified fetus ([facility]) Expected: 09/09/2025, Expires: 01/08/2026documented as of this encounter Goals GoalPatient Goal TypeAssociated ProblemsRecent ProgressPatient-Stated?Author Reminders Care PlanOB RemindersNoOpen Scheduling, Backgrounddocumented as of this encounter Procedures Procedure NamePriorityDate/TimeAssociated DiagnosisCommentsPOCT URINALYSIS PHTMHZCFYlzomzf35/02/2025 8:47 AM EST Third trimester ([facility]) documented in this encounter Results * (ABNORMAL) POCT urinalysis dipstick manually resulted (09/09/2025 8:47 AM EST) ComponentValueRef RangeTest MethodAnalysis TimePerformed AtPathologist SignatureColor, UAYellowClarity, UAClearGlucose, UANegativeNegative - 2000(110) ++++ mg/dLBilirubin, UANegativeNegative - 4(70) +++ mg/dLKetones, UA NegativeNegative - 160(16) ++++ mg/dLSpec Grav, UA1.0051 - 1.03Blood, UA NegativeNegative - 50 Tray/mcLpH, UA6.55 - 9Protein, UANegativeNegative - 2000(20) ++++ mg/dLUrobilinogen, UA1.00.2 - 12 mg/dLLeukocytes, UA3+Negative - 500+++ Benigno/mcLNitrite, UANegativeNegative - PositiveSpecimen (Source) Anatomical Location / LateralityCollection Method / VolumeCollection Time Received KpcfXhxjf32/02/2025 8:47 AM EST Narrative Authorizing ProviderResult TypeResult StatusCorey Luba DOPOINT OF CARE TEST ENTER/EDIT ORDERABLESFinal Result documented in this encounter Visit Diagnoses Diagnosis Third trimester ([facility]) state, incidental 34 weeks gestation of ([facility]) Excessive growth affecting management of , antepartum, single or unspecified fetus ([facility]) documented in this encounter Additional Health Concerns Active ProblemsNoted DateDiagnosed DateOB Oczsdtvzx14/21/2025 documented as of this encounter Care Teams Team MemberRelationshipSpecialtyStart DateEnd Date Huy Degroot MD [address] [facility] [place] [phone] PCP - General01/09/24documented as of this encounter
--- OUTSIDE RECORDS SUMMARY | 2025-09-23 08:00 | XMS_ITS | Encounter Summary ---
Author Organization [facility] Address [address] [place] [address] Care Team Providers Care Investments Manager Name Role Phone Huy Degroot MD Primary Care Provider Encounter Details DateTypeDepartmentCare Team (Latest Contact Info)Wedqqmhhcjx83/16/2025 8:00 AM ESTAncillary Procedure [facility] [address] [place] [address] [place] [address] Excessive growth affecting management of , antepartum, single or unspecified fetus ([facility]) Social History Tobacco UseTypesPacks/DayYears UsedDateSmoking Tobacco: Never Assessed Estimated Date of GjcylctgQhtgcfhfEtv62/09/2026Based on UltrasoundSex and Gender InformationValueDate RecordedSex Assigned at BirthNot on fileLegal SexFemale 12/21/2022 6:50 PM EDTGender IdentityNot on fileSexual OrientationNot on file documented as of this encounter Plan of Treatment DateTypeDepartmentCare Team (Latest Contact Info)Sjllpfvforf47/23/2025 8:30 AM ESTRoutine [facility] [address] [place] [address] Juliocesar Verduzco DO [facility] [place], [place] [phone] 01/26/2026 8:30 AM EDTOffice Visit [facility] [address] [place], [place] [address] [address] Juliocesar Verduzco, DO [address] [facility] [place] [address] NameTypePriorityAssociated DiagnosesDate/TimeUS OB follow up transabdominal approachImagingRoutine Excessive growth affecting management of , antepartum, single or unspecified fetus ([facility]) 09/23/2025 8:39 AM ESTdocumented as of this encounter Goals GoalPatient Goal TypeAssociated ProblemsRecent ProgressPatient-Stated?Author Reminders Care PlanOB RemindersNoOpen Scheduling, Backgrounddocumented as of this encounter Visit Diagnoses Diagnosis Excessive growth affecting management of , antepartum, single or unspecified fetus ([facility]) documented in this encounter Additional Health Concerns Active ProblemsNoted DateDiagnosed DateOB Yzgoyrrjg66/21/2025 documented as of this encounter Care Teams Team MemberRelationshipSpecialtyStart DateEnd Date Huy Degroot MD [address] [facility] [place] [address] PCP - General01/09/24documented as of this encounter
--- OUTSIDE RECORDS SUMMARY | 2025-09-23 08:30 | XMS_ITS | Encounter Summary ---
Author Organization [facility] Address [address] [place] [address] Care Team Providers Care Batch And Furnace Operator Name Role Phone Huy Degroot MD Primary Care Provider [phone] Reason for Visit * ReasonCommentsRoutine Visit Encounter Details DateTypeDepartmentCare Team (Latest Contact Info)Hbkjmotgipm56/16/2025 8:30 AM ESTRoutine [facility] [address] [phone] Juliocesar Verduzco DO [address] [place], [place] [phone] Third trimester ([facility]); 36 weeks gestation of ([facility]) Social History Tobacco UseTypesPacks/DayYears UsedDateSmoking Tobacco: Never Assessed Estimated Date of DliggzgeFbcgtjjfTaa05/09/2026Based on UltrasoundSex and Gender InformationValueDate RecordedSex Assigned at BirthNot on fileLegal SexFemale 12/21/2022 6:50 PM EDTGender IdentityNot on fileSexual OrientationNot on file documented as of this encounter Last Filed Vital Signs Vital SignReadingTime TakenCommentsBlood Yovpzpjy825/7009/23/2025 8:35 AM EST Pulse--Temperature--Respiratory Rate--Oxygen Saturation--Inhaled Oxygen Concentration--Fbmtgh57.3 kg (199 lb)09/23/2025 8:35 AM ESTHeight--Body Mass Index35.2504 12:00 PM EDTdocumented in this encounter Progress Notes * Annia Reynaga, DISPOSAL WORKER - 09/23/2025 8:30 AM EST Reason for Appointment: Patient [...] appearance. She is well-developed. Genitourinary: Vulva normal. Cardiovascular: Rate and Rhythm: Normal rate and [...] nursing note reviewed. Exam conducted with a machine feeder floorperson present. Vitals: Estimated body mass index is 35.25 kg/m?? as calculated from the following: Height as of 01/11/23: 5' 3 . Weight as of this encounter: 199 lb. BP: 120/70 Patient's last menstrual period was 01/16/2025. Assessment/Plan ICD-10-CM 1. Third trimester ([facility]) Z34.93 POCT urinalysis dipstick manually resulted CULTURE, GROUP B STREP WITH SUSCEPTIBLITY CULTURE, GROUP B STREP WITH SUSCEPTIBLITY 2. 36 weeks gestation of ([facility]) Z3A.36 Assessment/Plan Patient is doing well but has complaints of being tired and having maternal discomfort due to . Patient verbalized frequent movement and was instructed to perform fetalkick counts three times per day. labor precautions were given, LARC consent was signed/declined, and GBS was obtained. Cervical check was performed and patient is 1cm dilated. Baby is breech, buttocks is in the pelvis. Orders Placed This Encounter Procedures CULTURE, GROUP B STREP WITH SUSCEPTIBLITY POCT urinalysis dipstick manually resulted Follow Up: Patient is to return to office in 1 week for routine OB appointment Documented by Annai Reynaga LPN on behalf of: Juliocesar Verduzco DO documented in this encounter Plan of Treatment DateTypeDepartmentCare Team (Latest Contact Info)Wtxmohxopey43/23/2025 8:30 AM ESTRoutine [facility] [address] [address] Juliocesar Verduzco DO [address] [place], [place] [phone] 01/26/2026 8:30 AM EDTOffice Visit [facility] [address] [place] [address] Juliocesar Verduzco DO [address] [place], [place] [phone] NameTypePriorityAssociated DiagnosesOrder ScheduleCULTURE, GROUP B STREP WITH SUSCEPTIBLITYLabRoutine Third trimester ([facility]) Expected: 09/23/2025, Expires: 09/23/2026documented as of this encounter Goals GoalPatient Goal TypeAssociated ProblemsRecent ProgressPatient-Stated?Author Reminders Care PlanOB RemindersNoOpen Scheduling, Backgrounddocumented as of this encounter Procedures Procedure NamePriorityDate/TimeAssociated DiagnosisCommentsPOCT URINALYSIS EJNAQBQAQqncgdu78/16/2025 8:50 AM EST Third trimester ([facility]) documented in this encounter Results * (ABNORMAL) POCT urinalysis dipstick manually resulted (09/23/2025 8:50 AM EST) ComponentValueRef RangeTest MethodAnalysis TimePerformed AtPathologist SignatureColor, UAYellowClarity, UAClearGlucose, UANegativeNegative - 2000(110) ++++ mg/dLBilirubin, UANegativeNegative - 4(70) +++ mg/dLKetones, UA NegativeNegative - 160(16) ++++ mg/dLSpec Grav, UA1.0101 - 1.03Blood, UA NegativeNegative - 50 Tray/mcLpH, UA6.05 - 9Protein, UANegativeNegative - 2000(20) ++++ mg/dLUrobilinogen, UA1.00.2 - 12 mg/dLLeukocytes, UA3+Negative - 500+++ Benigno/mcLNitrite, UANegativeNegative - PositiveSpecimen (Source) Anatomical Location / LateralityCollection Method / VolumeCollection Time Received IxsuSoqis39/16/2025 8:50 AM EST Narrative Authorizing ProviderResult TypeResult StatusCorey Luba DOPOINT OF CARE TEST ENTER/EDIT ORDERABLESFinal Result documented in this encounter Visit Diagnoses Diagnosis Third trimester ([facility]) state, incidental 36 weeks gestation of ([facility]) documented in this encounter Additional Health Concerns Active ProblemsNoted DateDiagnosed DateOB Cnizrhsyx72/21/2025 documented as of this encounter Care Teams Team MemberRelationshipSpecialtyStart DateEnd Date Huy Degroot MD [facility] [facility] [place] [address] [facility] - General01/09/24documented as of this encounter
--- OUTSIDE RECORDS SUMMARY | 2025-09-23 12:28 | XMS_ITS | Clinical Summary ---
Author Organization [facility] Address [address] [place] [address] Care Team Providers Care Medical Record Administrator Name Role Phone Huy Degroot MD Primary Care Provider [phone] Allergies No known active allergies Medications MedicationSigDispense QuantityRefillsLast FilledStart DateEnd DateStatus Vit-Fe Fumarate-FA ( Vitamins) 28-0.8 MG tablet Indications:, unspecified gestational age ([facility]),Encounter for supervision of normal first in first trimester ([facility])Take 1 tablet by mouth Daily 30 tablet 110506/ctive omeprazole (PriLOSEC) [address] capsule Indications:Gastroesophageal Reflux Disease,HeartburnTake 1 capsule (20 mg) by mouth in the morning. Take before meals. Do not crush or chew. 30 capsule 5Active Additional Information Patient not taking.Reported on 08/26/2025 Encounters DateTypeDepartmentCare ChtaZnhdnedjnha70/16/2025 8:30 AM ESTRoutine [facility] [address] [place] [address] Juliocesar Verduzco DO Third trimester ([facility]); 36 weeks gestation of ([facility])09/23/2025 8:00 AM ESTAncillary Procedure [facility] [address] [place] [address] Excessive growth affecting management of , antepartum, single or unspecified fetus ([facility])09/22/20255169Iiorkx97/02/2025 8:30 AM ESTRoutine [facility] [address] [facility] [address] Juliocesar Verduzco, Third trimester ([facility]); 34 weeks gestation of ([facility]); Excessive growth affecting management of , antepartum, single or unspecified fetus ([facility])09/09/2025amboo flowsheet [facility] [place] [facility] [address] [facility] [address] Juliocesar Verduzco DO 09/02/20255362Httqce40/18/2025 8:50 AM ESTRoutine [facility]GY[facility] Rodney [facility] [place] [address] Gely Berumen PA 32 weeks gestation of ([facility]); Third trimester ([facility]); Heartburn during in third trimester ([facility])08/26/2025amboo flowsheet [facility] [place] [place] [facility] [address] [facility] [place] [address] Gely Berumen PA 08/20/20256244Ujfrom48/03/2025 8:50 AM ESTRoutine [facility] J[facility]ONN [address] [facility] [place] [address] Gely Berumen PA Third trimester ([facility]); 30 weeks gestation of ([facility])08/11/2025 8:00 AM ESTAncillary Procedure [facility] [address] [facility] [place] [phone] Third trimester ([facility]); 28 weeks gestation of ([facility]); Size of fetus inconsistent with dates, antepartum ([facility])08/05/2025Travel 07/28/2025 8:30 AM EDTRoutine [facility] [address] [facility] [place] [phone] Juliocesar Verduzco, Third trimester ([facility]); 28 weeks gestation of ([facility]); Size of fetus inconsistent with dates, antepartum ([facility]); Heartburn during in third trimester ([facility])07/28/2025bstract [facility] [address] Susan Hill MA 07/28/2025amboo flowsheet [facility] [place] [address] Juliocesar Verduzco DO 07/23/20258526Ngqpyo93/10/2025External Result Encounter [facility] External Department Unsolicited Gely Berumen PA 07/18/2025External Result Encounter NOMS External Department Unsolicited Gely Berumen PA 06/30/2025 9:20 AM EDTRoutine [facility] [address] Gely Berumen PA Diabetes mellitus screening; Second trimester ([facility])06/30/2025amboo flowsheet [facility] [address] [place] [address] [place] [address] Gely Berumen PA from Last 3 Months Social History Tobacco UseTypesPacks/DayYears UsedDateSmoking Tobacco: Never Assessed Estimated Date of WczjxgvmOlzxzfhpBod04/09/2026Based on UltrasoundSex and Gender InformationValueDate RecordedSex Assigned at BirthNot on fileLegal SexFemale 12/21/2022 6:50 PM EDTGender IdentityNot on fileSexual OrientationNot on file Last Filed Vital Signs Vital SignReadingTime TakenCommentsBlood Wgsmryuf815/7009/23/2025 8:35 AM EST Pulse--Temperature--Respiratory Rate--Oxygen Saturation--Inhaled Oxygen Concentration--Wyjmzm86.3 kg (199 lb)09/23/2025 8:35 AM SANUajskk492 cm (5' 3 ) 01/11/2023 12:00 PM EDTBody Mass Index35.25001/11/2023 12:00 PM EDT Plan of Treatment DateTypeDepartmentCare Team (Latest Contact Info)Zcpawciahuu40/23/2025 8:30 AM ESTRoutine [facility] [address] [facility] [place] [address] Juliocesar Verduzco, DO [address] [place] [address] 01/26/2026 8:30 AM EDTOffice Visit [facility] [address] [facility] [place] [phone] Juliocesar Verduzco, DO [address] [place] [address] Goals GoalPatient Goal TypeAssociated ProblemsRecent ProgressPatient-Stated?Author Reminders Care PlanOB RemindersNoOpen Scheduling, Background Procedures Procedure NamePriorityDate/TimeAssociated DiagnosisCommentsPOCT URINALYSIS IFPEAYGYMfrefag61/16/2025 8:50 AM EST Third trimester ([facility]) POCT URINALYSIS XDFAWTWWUqqhgtx49/02/2025 8:47 AM EST Third trimester ([facility]) POCT URINALYSIS JRGZCUNHVfutowx28/18/2025 9:21 AM EST 32 weeks gestation of ([facility]) Third trimester ([facility]) POCT URINALYSIS DSPDTJBZFcablyp24/03/2025 9:00 AM EST 30 weeks gestation of ([facility]) OB FOLLOW UP TRANSABDOMINAL PANKYHXDJmrigtz90/03/2025 8:17 AM EST Third trimester ([facility]) 28 weeks gestation of ([facility]) Size of fetus inconsistent with dates, antepartum ([facility]) POCT URINALYSIS CGULAILAAyisrsa85/20/2025 9:24 AM EDT 28 weeks gestation of ([facility]) GLUCOSE,1 HOUR PP 50GM DOSE ([facility])Axknkbg4207/18/2025 1:51 PM EDT CBC WITH AUTO UFPYBFZRMJQPIvaeciu93/10/2025 1:51 PM EDT POCT URINALYSIS VHQFIWRDSxvzuoj49/22/2025 9:41 AM EDT Second trimester ([facility]) from Last 3 Months Results * (ABNORMAL) POCT urinalysis dipstick manually resulted (09/23/2025 8:50 AM EST) Only the most recent of6 resultswithin the time period is included. ComponentValueRef RangeTest MethodAnalysis TimePerformed AtPathologist Signature Color, UAYellowClarity, UAClearGlucose, UANegativeNegative - 2000(110) ++++ mg/dLBilirubin, UANegativeNegative - 4(70) +++ mg/dLKetones, UANegativeNegative - 160(16) ++++ mg/dLSpec Grav, UA1.0101 - 1.03Blood, UANegativeNegative - 50 Tray/mcLpH, UA6.05 - 9Protein, UANegativeNegative - 2000(20) ++++ mg/dL Urobilinogen, UA1.00.2 - 12 mg/dLLeukocytes, UA3+Negative - 500+++ Benigno/mcL Nitrite, UANegativeNegative - PositiveSpecimen (Source)Anatomical Location / LateralityCollection Method / VolumeCollection TimeReceived TssqWttvh38/16/2025 8:50 AM EST Narrative Authorizing ProviderResult TypeResult StatusCorey Luba DOPOINT OF CARE TEST ENTER/EDIT ORDERABLESFinal Result * US OB follow up transabdominal approach (08/11/2025 8:17 AM EST)Anatomical RegionLateralityModalityBodyUltrasoundSpecimen (Source)Anatomical Location / LateralityCollection Method / VolumeCollection TimeReceived Time08/11/2025 12:58 PM EST Impressions 08/12/2025 8:25 AM EST 1. Single, live intrauterine , current sonographic age of 30 weeks and 4 days, with an estimated date of delivery of October 16, 2025. 2. Comparison made with prior examination of March 21, 2025 delivery at that time was October 17, 2025. * ??Estimated Weight (g) by Percentile is based upon an accurate estimated age based onlast menstrual period. ?? TRANSCRIBED BY: ? ELECTRONICALLY SIGNED BY: Artur Andersen MD Narrative 08/12/2025 8:25 AM EST FINDINGS: A single, live intrauterine is present with normal cardiac rate of ??122 beats per minute. Normal activity and amniotic fluid volume. Amniotic fluid index is ?? 16 cm. ??Morphology is grossly normal. The current sonographic age is ??30 weeks and ??4 days, based on the following measurements: BPD ? 7.6 cm (30 weeks, 3 days) Head Circumference ?27.8cm ( 30 weeks,3 ??days) Abdominal Circumference ?26.5cm (30 weeks, 4 days) Femur Length ? 5.9cm (30 weeks, 4 days) Weight (g) by Percentile ??41.1 % * These measurements result in an estimated date of delivery of ??October 16, 2025. ?? The current estimated weight is ??1593 ??grams ( 3 pound, 8 ??ounces). ?? Procedure Note Artur Andersen MD - 08/12/2025 FINDINGS: A single, live intrauterine is present with normal cardiacrate of 122 beats per minute. Normal activity and amniotic fluidvolume. Amniotic fluid index is 16 cm. Morphology is grossly normal.The current sonographic age is 30 weeks and 4 days, based on thefollowing measurements: BPD 7.6 cm (30 weeks, 3 days) Head Circumference 27.8cm ( 30 weeks,3 days) Abdominal Circumference 26.5cm (30 weeks, 4 days) Femur Length 5.9cm (30 weeks, 4 days) Weight (g) by Percentile 41.1 % * These measurements result in an estimated date of delivery of October. The current estimated weight is 1593 grams ( 3 pound, 8ounces). IMPRESSION: 1. Single, live intrauterine , current sonographic age of 30weeks and 4 days, with an estimated date of delivery of October 16, 2025. 2. Comparison made with prior examination of March 21, 2025 delivery atthat time was October 17, 2025. * Estimated Weight (g) by Percentile is based upon an accurateestimated age based on last menstrual period. TRANSCRIBED BY: ELECTRONICALLY SIGNED BY: Artur Andersen MD Authorizing ProviderResult TypeResult StatusJuliocesar NO OB US PROCEDURES Final Result * GLUCOSE,1 HOUR PP 50GM DOSE ([facility]) (07/18/2025 1:51 PM EDT)ComponentValueRef RangeTest MethodAnalysis TimePerformed AtPathologist SignatureGLUCOSE,1 HOUR PP 50GM LFHK36790 - 140 mg/dL07/18/2025 3:17 PM [facility] CtrSpecimen (Source)Anatomical Location / LateralityCollection Method / Volume Collection TimeReceived TimeOtherTopography unknown / Fhzuzgn4107/18/2025 1:51 PM EDT1 1:51 PM EDT Narrative Authorizing ProviderResult TypeResult StatusGely CRONIN BLOOD ORDERABLES Final ResultPerforming OrganizationAddressCity/State/ZIP CodePhone Number [facility] [address] [place] [address], [facility] [address] [place] [address] * CBC auto differential (07/18/2025 1:51 PM EDT)ComponentValueRef RangeTest MethodAnalysis TimePerformed AtPathologist SignatureWBC9.33.8 - 11.6 [CFU]/mL 07/18/2025 3:01 PM [facility] CtrUNCORRECTED WHITE BLOOD COUNT9.33.8 - 11.6 10*3/uL07/18/2025 3:01 PM [facility] RBC4.003.60 - 5.00 10*6/uL07/18/2025 3:01 PM [facility] UZPBQMXRAF93.811.8 - 15.4 g/dL07/18/2025 3:01 PM [facility] GwqZLXKEMUFIO99.934.0 - 46.4 %07/18/2025 3:01 PM [facility] RpqGFY81.180 - 100 fL07/18/2025 3:01 PM [facility] MgvOQJ73.024.7 - 34.3 pg07/18/2025 3:01 PM [facility] MCHC34.732.0 - 35.0 g/dL07/18/2025 3:01 PM [facility] RED CELL DISTRIBUTION WIDTH, RDW13.211.9 - 15.3 %07/18/2025 3:01 PM [facility] CtrPLATELET [id number] - 450 10*3/uL07/18/2025 3:01 PM [facility] CtrMEAN PLATELET VOLUME, MPV8.26.3 - 10.7 fL07/18/2025 3:01 PM [facility] CtrNEUTROPHILS, %74.5. %07/18/2025 3:01 PM [facility] CtrLYMPHOCYTES, %17.9. % 07/18/2025 3:01 PM [facility] CtrMONOCYTE/MACROPHAGE, %5.6. %07/18/2025 3:01 PM [facility] CtrEOSINOPHILS, %1.8. % 07/18/2025 3:01 PM [facility] CtrBASOPHILS, %0.2. % 07/18/2025 3:01 PM [facility] CtrNRBC0.20 - 0.5 /100{WBC} 07/18/2025 3:01 PM [facility] CtrNEUTROPHILS6.91.8 - 7.7 10*3/uL07/18/2025 3:01 PM [facility] CtrLYMPHOCYTES1.71.00 - 4.8 10*3/uL07/18/2025 3:01 PM [facility] CtrMONOCYTES0.5 0.0 - 0.8 10*3/uL07/18/2025 3:01 PM [facility] EOSINOPHILS0.20.0 - 0.45 10*3/uL07/18/2025 3:01 PM [facility] CtrBASOPHILS0.00.0 - 0.2 10*3/uL07/18/2025 3:01 PM [facility] CtrSpecimen (Source)Anatomical Location / Laterality Collection Method / VolumeCollection TimeReceived TimeBlood (Blood)07/18/2025 1:51 PM EDT1 1:51 PM EDT Narrative Authorizing ProviderResult TypeResult StatusAmy Jamaica PALAB BLOOD ORDERABLES Final ResultPerforming OrganizationAddressCity/State/ZIP CodePhone Number [facility] [address] [place] [address], [facility] [address] [place] [address] from Last 3 Months Additional Health Concerns Active ProblemsNoted DateDiagnosed DateOB Ypaijcmcc63/21/2025 Insurance Care Teams Team MemberRelationshipSpecialtyStart DateEnd Date Huy Degroot MD [address] [facility] [place] [phone] PCP - [facility]01/09/24
--- OUTSIDE RECORDS SUMMARY | 2025-09-23 12:29 | XMS_ITS | Encounter Summary ---
Author Organization [facility] Address [address] [place] [address] Care Team Providers Care Polishing Pad Mounter Name Role Phone Huy Degroot MD Primary Care Provider [phone] Encounter Details DateTypeDepartmentCare Team (Latest Contact Info)Unebllditlc58/02/2025amboo flowsheet [facility] [address] [place] [address] Juliocesar Verduzco DO [address] [place], [place] [address] Social History Tobacco UseTypesPacks/DayYears UsedDateSmoking Tobacco: Never Assessed Estimated Date of NrlukhcjUvzifvuhSpk92/09/2026ased on UltrasoundSex and Gender InformationValueDate RecordedSex Assigned at BirthNot on fileLegal SexFemale 12/21/2022 6:50 PM EDTGender IdentityNot on fileSexual OrientationNot on file documented as of this encounter Plan of Treatment DateTypeDepartmentCare Team (Latest Contact Info)Jbqjvayqraj08/23/2025 8:30 AM ESTRoutine [facility] [address] [place] [address] Juliocesar Verduzco DO [address] [place], [place] [address] 01/26/2026 8:30 AM EDTOffice Visit [facility] [address] [place] [address] Juliocesar Verduzco, DO [address] [place] [address] documented as of this encounter Goals GoalPatient Goal TypeAssociated ProblemsRecent ProgressPatient-Stated?Author Reminders Care PlanOB RemindersNoOpen Scheduling, Backgrounddocumented as of this encounter Visit Diagnoses Not on filedocumented in this encounter Additional Health Concerns Active ProblemsNoted DateDiagnosed DateOB Puptjhybn42/21/2025 documented as of this encounter Care Teams Team MemberRelationshipSpecialtyStart DateEnd Date Huy Degroot MD [address] [facility] [place] [address] PCP - General01/09/24documented as of this encounter
--- OUTSIDE RECORDS SUMMARY | 2025-09-23 12:29 | XMS_ITS | Encounter Summary ---
Author Organization [facility] Address [address] [place] [address] Care Team Providers Care Production Engineer Name Role Phone Huy Degroot MD Primary Care Provider [phone] Encounter Details DateTypeDepartmentCare Team (Latest Contact Info)Ckhjeuiebek58/15/2025Travel Social History Tobacco UseTypesPacks/DayYears UsedDateSmoking Tobacco: Never Assessed Estimated Date of WyfdhefxXkhyhoaiSsf02/09/2026Based on UltrasoundSex and Gender InformationValueDate RecordedSex Assigned at BirthNot on fileLegal SexFemale 12/21/2022 6:50 PM EDTGender IdentityNot on fileSexual OrientationNot on file documented as of this encounter Plan of Treatment DateTypeDepartmentCare Team (Latest Contact Info)Mtvezzlgubz48/23/2025 8:30 AM ESTRoutine [facility] [address] [place] [address] [place] [address] Juliocesar Verduzco, DO [address] [place] [place], [place] [address] 01/26/2026 8:30 AM EDTOffice Visit [facility] [address] [facility] [place] [address] Juliocesar Verduzco, DO [address] [place] [place], [place] [address] documented as of this encounter Goals GoalPatient Goal TypeAssociated ProblemsRecent ProgressPatient-Stated?Author Reminders Care PlanOB RemindersNoOpen Scheduling, Backgrounddocumented as of this encounter Visit Diagnoses Not on filedocumented in this encounter Additional Health Concerns Active ProblemsNoted DateDiagnosed DateOB Bdkuidxaz97/21/2025 documented as of this encounter Care Teams Team MemberRelationshipSpecialtyStart DateEnd Date Huy Degroot MD [address] [place] [address] PCP - General01/09/24documented as of this encounter
--- OUTSIDE RECORDS SUMMARY | 2025-09-23 12:29 | XMS_ITS | Clinical Summary ---
Author Organization [facility] Address [address] [place], [place] [address] Care Team Providers Care Copper Miner Blasting Name Role Phone Evangelist Brito Primary Care Provider Medications MedicationSigDispense QuantityRefillsLast FilledStart DateEnd DateStatus ciprofloxacin HCl (CIPRO ORAL) Take by mouth.Active Social History Tobacco UseTypesPacks/DayYears UsedDateSmoking Tobacco: Never AssessedArea Deprivation IndexAnswerDate RecordedNational Score (1-100), lower number is lower riskNot on file02/24/2021tate Score (1-10), lower number is lower riskNot on file1Data from: https://www.neighborhoodatlas.medicine.[facility]/. Last address used for calculationNot on file1CommentsNoSex and Gender InformationValueDate RecordedSex Assigned at BirthNot on fileLegal Sex Qidrfi6310/20/2020 12:53 PM ESTGender IdentityNot on fileSexual OrientationNot on file Last Filed Vital Signs Vital SignReadingTime TakenCommentsBlood Zwloooxy941/80002/24/2021 10:37 AM EDT Pulse--Temperature--Respiratory Rate--Oxygen Saturation--Inhaled Oxygen Concentration--Ywkkvc49.9 kg (152 lb)02/24/2021 10:37 AM ZHCMuowgh359.6 cm (5' 4 )02/24/2021 10:37 AM EDTBody Mass Index26.0902/24/2021 10:37 AM EDT Plan of Treatment Health MaintenanceDue DateLast DoneCommentsAnxiety Oscnokqvx80/15/2014Depression Hqeyngbbr66/15/2014HIV Utmaqqohy28/15/2014Hepatitis C Oghnvhreg47/15/2014 DTaP,Tdap,Td Vaccine (1 - Tdap)2014Hepatitis B Vaccine (1 of 3 - 19+ 3- dose series)2014Cervical Cancer Kyundjnfn67/15/2017HPV Vaccine (1 - 3-dose SCDM series)3Covid-19 Vaccine (2024- season)2025Influenza Vaccine (#1)2025 Insurance Care Teams Team MemberRelationshipSpecialtyStart DateEnd Date Evangelist Brito [address] [place] [address] PCP - GeneralInternal Medicine10/20/20
== END 2025-09-23 12:26 | disposition home or self-care (01) ==
LOC: LAB 12:25
PROVIDERS: PCP Family Medicine; Visit Provider Obstetrics & Gynecology
DX: Z34.93 Encounter for supervision of normal pregnancy, unspecified, third trimester (principal); Z3A.36 36 weeks gestation of pregnancy
CPT/HCPCS: 87081